=== PATIENT | female | born 1940 ===

== ENCOUNTER 2019-04-25 08:25 | Inpatient (IN) | payer MEDICARE ==
[2019-04-25] MEDS ORDERED: NACL 0.9% 1000 ML IV ONE (09:06)
[2019-04-25] MEDS ORDERED: MORPHINE IV ONE (09:07)
[2019-04-25] MEDS ORDERED: ZOFRAN IV ONE (09:07)
--- NOTE | 2019-04-25 09:09 | Emergency Department Report ---
ED General Adult HPI - General Chief complaint: Nausea/Vomiting/Diarrhea Stated complaint: VOMITING/LOW BLOOD SUGAR/LETHARGIC Time Seen by Provider: 04/25/19 08:38 Source: patient, EMS (EMS notes not available at time of chart dictation), RN notes reviewed Mode of arrival: Stretcher Limitations: Other - History of Present Illness Initial comments: This is an elderly 79-year-old female who is not known to this provider previously. As per includes documentation, it appears that Dr. Dorothea Burks is her provider. The patient's may have a history of diabetes. She may also have a history of asthma, COPD or bronchitis, and/or GERD, gastritis. Patient is currently a resident at [facility]. Patient brought to the hospital by EMS for altered mental status, weakness and hypoglycemia. EMS indicates the patient was hypoglycemic, and required initiation of a dextrose 10 drip. In the ER, the patient is awake, but altered. She complains of abdominal pain. She cannot tell me when the pain started. She cannot describe exacerbating or relieving factors, or radiation. The patient follows commands. She states she is nauseous. She denies head pain, neck pain, chest pain, urinary symptoms, focal extremity weakness, numbness. No additional history is available at this time. -: unknown Radiation: abdomen Quality: other Consistency: other Improves with: other Worsens with: other Associated Symptoms: other - Related Data Home Medications Medication Instructions Recorded Confirmed Last Taken ALBUTEROL Inhaler (OR & NICU) 2 puff IH BID PRN 04/25/19 04/25/19 Unknown [Proair] Insulin NPH/Regular [Novolin 70/30] 25 units SUB-Q QAM&QHS 04/25/19 04/25/19 Unknown Nitroglycerin [Nitrostat] 0.4 mg SL Q5M PRN MDD 1.2 MG 04/25/19 04/25/19 Unknown Ondansetron [Zofran TAB] 4 mg PO Q6HR PRN 04/25/19 04/25/19 Unknown Pantoprazole [Protonix] 40 mg PO QDAY 04/25/19 04/25/19 Unknown Triamcinolone 0.1% [Kenalog 0.1% 1 applic TP DAILY@0900 04/25/19 04/25/19 Unknown CREAM] traMADol [Ultram] 50 mg PO TID PRN 04/25/19 04/25/19 Unknown Allergies Allergy/AdvReac Type Severity Reaction Status Date / Time No Known Allergies Allergy Verified 04/25/19 09:21 ED Review of Systems ROS: Stated complaint: VOMITING/LOW BLOOD SUGAR/LETHARGIC Other details as noted in HPI Comment: Unobtainable due to pts medical conditions Constitutional: malaise, weakness Gastrointestinal: abdominal pain, nausea Neurological: weakness ED Past Medical Hx - Past Medical History Previous Medical History?: Yes Hx Diabetes: Yes (Type II) Hx Renal Disease: Yes (Stage 3) Hx Psychiatric Treatment: Yes (MDD, Dementia) Additional medical history: Angina, - Social History Smoking Status: Former Smoker - Medications Home Medications: Home Medications Medication Instructions Recorded Confirmed Last Taken Type ALBUTEROL Inhaler (OR & NICU) 2 puff IH BID PRN 04/25/19 04/25/19 Unknown History [Proair] Insulin NPH/Regular [Novolin 70/30] 25 units SUB-Q QAM&QHS 04/25/19 04/25/19 Unknown History Nitroglycerin [Nitrostat] 0.4 mg SL Q5M PRN MDD 1.2 MG 04/25/19 04/25/19 Unknown History Ondansetron [Zofran TAB] 4 mg PO Q6HR PRN 04/25/19 04/25/19 Unknown History Pantoprazole [Protonix] 40 mg PO QDAY 04/25/19 04/25/19 Unknown History Triamcinolone 0.1% [Kenalog 0.1% 1 applic TP DAILY@0900 04/25/19 04/25/19 Unknown History CREAM] traMADol [Ultram] 50 mg PO TID PRN 04/25/19 04/25/19 Unknown History ED Physical Exam - General Limitations: Altered Mental Status, Other General appearance: alert, in no apparent distress - Head Head exam: Present: atraumatic, normocephalic - Eye Eye exam: Present: EOMI - ENT ENT exam: Present: mucous membranes dry, normal external ear exam - Neck Neck exam: Present: normal inspection, full ROM. Absent: tenderness, meningismus - Respiratory Respiratory exam: Present: normal lung sounds bilaterally. Absent: respiratory distress - Cardiovascular Cardiovascular Exam: Present: normal rhythm, tachycardia, normal heart sounds. Absent: systolic murmur, diastolic murmur, rubs, gallop - GI/Abdominal GI/Abdominal exam: Present: soft, tenderness. Absent: distended, guarding, rebound, rigid, pulsatile mass - Rectal Rectal exam: Present: normal inspection, other (chaperoned by nurse Lena Madrid). Absent: heme (-) stool - External exam: Present: normal external exam, other (chaperoned by frankie black). Absent: erythema, swelling, lesions, lacerations Speculum exam: Absent: vaginal bleeding, foreign body, tissue, laceration Bi-manual exam: Present: other (uterine prolapse noted) - Extremities Exam Extremities exam: Present: normal inspection, full ROM, other (2+ pulses noted in the bilateral upper, lower extremities. There is no long bony tenderness. The pelvis is stable. Muscular compartments are soft. There is no redness, pus, streaking or crepitus noted.). Absent: joint swelling, calf tenderness - Back Exam Back exam: Present: normal inspection, full ROM. Absent: tenderness, CVA tenderness (R), CVA tenderness (L), paraspinal tenderness, vertebral tenderness - Neurological Exam Neurological exam: Present: altered, other (Extraocular movements are intact bilaterally. There is no facial droop. The tongue is midline. Patient speaking in full complete sentences. There is no dysphonia. Hearing is grossly intact bilaterally. Shoulder shrug is intact bilaterally. 5/5 strength bilateral upper, lower extremities. Sensation is intact to light touch bilateral upper, lower extremities.) - Psychiatric Psychiatric exam: Present: anxious - Skin Skin exam: Present: warm, dry, intact, normal color. Absent: rash ED Course Vital Signs 04/25/19 04/25/19 04/25/19 08:54 09:00 09:01 Temperature 99.2 F Pulse Rate 190 H 98 H Respiratory 14 Rate Blood Pressure O2 Sat by Pulse Oximetry 04/25/19 04/25/19 04/25/19 09:15 09:20 09:31 Temperature 99.2 F Pulse Rate 107 H 104 H Respiratory 15 13 Rate Blood Pressure 184/76 181/78 O2 Sat by Pulse 100 100 Oximetry 04/25/19 10:01 Temperature Pulse Rate 106 H Respiratory 11 L Rate Blood Pressure 181/78 O2 Sat by Pulse 98 Oximetry - Reevaluation(s) Reevaluation #1: 04/25/19 11:03 Differential diagnosis, including but not limited to: Pneumonia, urinary tract infection, intra-abdominal infection, bacteremia, viremia Assessment and plan: 79-year-old female with tachycardia, lactic acidosis, acute renal insufficiency, diffuse abdominal tenderness and hypoglycemia. Patient meets criteria for systemic inflammatory response syndrome. Patient medicated with IV fluids, pain medication, nausea medication and appropriate broad- spectrum antibiotic therapy. Do not suspect skin or soft tissue infection at this time based off of the physical examination. CT scan of the brain, abdomen and pelvis pending. Patient placed on dextrose 10 drip, and every 1 hour Accu- Cheks are ordered. We will reassess once her imaging studies have resulted. Likely candidate for admission for IV fluids, antibiotics, pain control and supportive therapy. May require additional consultations as dictated by initial imaging studies. Reevaluation #2: 04/25/19 11:52 CT scan of brain negative for acute disease. CT scan of the abdomen pelvis reviewed and appreciated. Gynecologic examination suggestive of uterine prolapse. Discussed with daughter and granddaughter at the bedside. As per daughter, patient admitted to [facility] a few weeks ago for dehydration and similar presentation. Discussed goals of care with family. They indicated they would like the patient to be DO NOT RESUSCITATE, DO NOT INTUBATE. They are amenable to IV fluids, pain medication, and comfort care. Hospital physician is paged to arrange admission Reevaluation #3: 04/25/19 12:23 Case is presented to Hospital physician, Dr. Christy. He will admit the patient to the medical service. Repeat lactic acid is reviewed and appreciated. ED Medical Decision Making - Lab Data Result diagrams: 04/25/19 09:18 04/25/19 09:18 Vital Signs 04/25/19 04/25/19 04/25/19 08:54 09:00 09:01 Temperature 99.2 F Pulse Rate 190 H 98 H Respiratory 14 Rate Blood Pressure O2 Sat by Pulse Oximetry 04/25/19 04/25/19 04/25/19 09:15 09:20 09:31 Temperature 99.2 F Pulse Rate 107 H 104 H Respiratory 15 13 Rate Blood Pressure 184/76 181/78 O2 Sat by Pulse 100 100 Oximetry 04/25/19 10:01 Temperature Pulse Rate 106 H Respiratory 11 L Rate Blood Pressure 181/78 O2 Sat by Pulse 98 Oximetry Lab Results 04/25/19 04/25/19 04/25/19 Range/Units 09:18 09:18 09:18 WBC 10.8 (4.5-11.0) K/mm3 RBC 3.48 L (3.65-5.03) M/mm3 Hgb 12.0 (10.1-14.3) gm/dl Hct 35.0 (30.3-42.9) % MCV 101 H (79-97) fl MCH 35 H (28-32) pg MCHC 34 (30-34) % RDW 14.4 (13.2-15.2) % Plt Count 276 (140-440) K/mm3 Lymph % (Auto) 4.9 L (13.4-35.0) % [place] % (Auto) 5.6 (0.0-7.3) % Eos % (Auto) 0.0 (0.0-4.3) % Baso % (Auto) 0.2 (0.0-1.8) % Lymph # 0.5 L (1.2-5.4) K/mm3 [place] # 0.6 (0.0-0.8) K/mm3 Eos # 0.0 (0.0-0.4) K/mm3 Baso # 0.0 (0.0-0.1) K/mm3 Seg Neutrophils % 89.3 H (40.0-70.0) % Seg Neutrophils # 9.6 H (1.8-7.7) K/mm3 PT 12.4 (12.2-14.9) Sec. INR 0.95 (0.87-1.13) APTT 28.3 (24.2-36.6) Sec. Sodium 141 (137-145) mmol/L Potassium 4.2 (3.6-5.0) mmol/L Chloride 93.3 L (98-107) mmol/L Carbon Dioxide 23 (22-30) mmol/L Anion Gap 29 mmol/L BUN 51 H (7-17) mg/dL Creatinine 2.1 H (0.7-1.2) mg/dL Estimated GFR 23 ml/min BUN/Creatinine Ratio 24 % Glucose 187 H (65-100) mg/dL POC Glucose (70-105) Lactic Acid (0.7-2.0) mmol/L Calcium 9.7 (8.4-10.2) mg/dL Total Bilirubin 0.50 (0.1-1.2) mg/dL AST 22 (5-40) units/L ALT 19 (7-56) units/L Alkaline Phosphatase 52 (35-129) units/L Ammonia (25-60) umol/L Troponin T 0.056 H (0.00-0.029) ng/mL Total Protein 7.0 (6.3-8.2) g/dL Albumin 3.7 L (3.9-5) g/dL Albumin/Globulin Ratio 1.1 % Triglycerides 66 (2-149) mg/dL Cholesterol 113 (50-199) mg/dL LDL Cholesterol Direct 41 L (50-130) mg/dL HDL Cholesterol 68 H (40-59) mg/dL Cholesterol/HDL Ratio 1.66 % TSH (0.270-4.200) mlU/mL Urine Color (Yellow) Urine Turbidity (Clear) Urine pH (5.0-7.0) Ur Specific [place] (1.003-1.030) Urine Protein (Negative) mg/dL Urine Glucose (UA) (Negative) mg/dL Urine Ketones (Negative) mg/dL Urine Blood (Negative) Urine Nitrite (Negative) Urine Bilirubin (Negative) Urine Urobilinogen (<2.0) mg/dL Ur Leukocyte Esterase (Negative) Urine WBC (Auto) (0.0-6.0) /HPF Urine RBC (Auto) (0.0-6.0) /HPF Salicylates (2.8-20.0) mg/dL Acetaminophen (10.0-30.0) ug/mL Plasma/Serum Alcohol (0-0.07) % 04/25/19 04/25/19 04/25/19 Range/Units 09:18 09:18 09:18 WBC (4.5-11.0) K/mm3 RBC (3.65-5.03) M/mm3 Hgb (10.1-14.3) gm/dl Hct (30.3-42.9) % MCV (79-97) fl MCH (28-32) pg MCHC (30-34) % RDW (13.2-15.2) % Plt Count (140-440) K/mm3 Lymph % (Auto) (13.4-35.0) % [place] % (Auto) (0.0-7.3) % Eos % (Auto) (0.0-4.3) % Baso % (Auto) (0.0-1.8) % Lymph # (1.2-5.4) K/mm3 [place] # (0.0-0.8) K/mm3 Eos # (0.0-0.4) K/mm3 Baso # (0.0-0.1) K/mm3 Seg Neutrophils % (40.0-70.0) % Seg Neutrophils # (1.8-7.7) K/mm3 PT (12.2-14.9) Sec. INR (0.87-1.13) APTT (24.2-36.6) Sec. Sodium (137-145) mmol/L Potassium (3.6-5.0) mmol/L Chloride (98-107) mmol/L Carbon Dioxide (22-30) mmol/L Anion Gap mmol/L BUN (7-17) mg/dL Creatinine (0.7-1.2) mg/dL Estimated GFR ml/min BUN/Creatinine Ratio % Glucose (65-100) mg/dL POC Glucose (70-105) Lactic Acid 7.90 H* (0.7-2.0) mmol/L Calcium (8.4-10.2) mg/dL Total Bilirubin (0.1-1.2) mg/dL AST (5-40) units/L ALT (7-56) units/L Alkaline Phosphatase (35-129) units/L Ammonia 25.0 (25-60) umol/L Troponin T (0.00-0.029) ng/mL Total Protein (6.3-8.2) g/dL Albumin (3.9-5) g/dL Albumin/Globulin Ratio % Triglycerides (2-149) mg/dL Cholesterol (50-199) mg/dL LDL Cholesterol Direct (50-130) mg/dL HDL Cholesterol (40-59) mg/dL Cholesterol/HDL Ratio % TSH 1.470 (0.270-4.200) mlU/mL Urine Color (Yellow) Urine Turbidity (Clear) Urine pH (5.0-7.0) Ur Specific [place] (1.003-1.030) Urine Protein (Negative) mg/dL Urine Glucose (UA) (Negative) mg/dL Urine Ketones (Negative) mg/dL Urine Blood (Negative) Urine Nitrite (Negative) Urine Bilirubin (Negative) Urine Urobilinogen (<2.0) mg/dL Ur Leukocyte Esterase (Negative) Urine WBC (Auto) (0.0-6.0) /HPF Urine RBC (Auto) (0.0-6.0) /HPF Salicylates (2.8-20.0) mg/dL Acetaminophen (10.0-30.0) ug/mL Plasma/Serum Alcohol (0-0.07) % 04/25/19 04/25/19 04/25/19 Range/Units 09:18 09:18 09:18 WBC (4.5-11.0) K/mm3 RBC (3.65-5.03) M/mm3 Hgb (10.1-14.3) gm/dl Hct (30.3-42.9) % MCV (79-97) fl MCH (28-32) pg MCHC (30-34) % RDW (13.2-15.2) % Plt Count (140-440) K/mm3 Lymph % (Auto) (13.4-35.0) % [place] % (Auto) (0.0-7.3) % Eos % (Auto) (0.0-4.3) % Baso % (Auto) (0.0-1.8) % Lymph # (1.2-5.4) K/mm3 [place] # (0.0-0.8) K/mm3 Eos # (0.0-0.4) K/mm3 Baso # (0.0-0.1) K/mm3 Seg Neutrophils % (40.0-70.0) % Seg Neutrophils # (1.8-7.7) K/mm3 PT (12.2-14.9) Sec. INR (0.87-1.13) APTT (24.2-36.6) Sec. Sodium (137-145) mmol/L Potassium (3.6-5.0) mmol/L Chloride (98-107) mmol/L Carbon Dioxide (22-30) mmol/L Anion Gap mmol/L BUN (7-17) mg/dL Creatinine (0.7-1.2) mg/dL Estimated GFR ml/min BUN/Creatinine Ratio % Glucose (65-100) mg/dL POC Glucose (70-105) Lactic Acid (0.7-2.0) mmol/L Calcium (8.4-10.2) mg/dL Total Bilirubin (0.1-1.2) mg/dL AST (5-40) units/L ALT (7-56) units/L Alkaline Phosphatase (35-129) units/L Ammonia (25-60) umol/L Troponin T (0.00-0.029) ng/mL Total Protein (6.3-8.2) g/dL Albumin (3.9-5) g/dL Albumin/Globulin Ratio % Triglycerides (2-149) mg/dL Cholesterol (50-199) mg/dL LDL Cholesterol Direct (50-130) mg/dL HDL Cholesterol (40-59) mg/dL Cholesterol/HDL Ratio % TSH (0.270-4.200) mlU/mL Urine Color (Yellow) Urine Turbidity (Clear) Urine pH (5.0-7.0) Ur Specific [place] (1.003-1.030) Urine Protein (Negative) mg/dL Urine Glucose (UA) (Negative) mg/dL Urine Ketones (Negative) mg/dL Urine Blood (Negative) Urine Nitrite (Negative) Urine Bilirubin (Negative) Urine Urobilinogen (<2.0) mg/dL Ur Leukocyte Esterase (Negative) Urine WBC (Auto) (0.0-6.0) /HPF Urine RBC (Auto) (0.0-6.0) /HPF Salicylates < 0.3 L (2.8-20.0) mg/dL Acetaminophen < 5.0 L (10.0-30.0) ug/mL Plasma/Serum Alcohol < 0.01 (0-0.07) % 04/25/19 04/25/19 Range/Units 09:57 Unknown WBC (4.5-11.0) K/mm3 RBC (3.65-5.03) M/mm3 Hgb (10.1-14.3) gm/dl Hct (30.3-42.9) % MCV (79-97) fl MCH (28-32) pg MCHC (30-34) % RDW (13.2-15.2) % Plt Count (140-440) K/mm3 Lymph % (Auto) (13.4-35.0) % [place] % (Auto) (0.0-7.3) % Eos % (Auto) (0.0-4.3) % Baso % (Auto) (0.0-1.8) % Lymph # (1.2-5.4) K/mm3 [place] # (0.0-0.8) K/mm3 Eos # (0.0-0.4) K/mm3 Baso # (0.0-0.1) K/mm3 Seg Neutrophils % (40.0-70.0) % Seg Neutrophils # (1.8-7.7) K/mm3 PT (12.2-14.9) Sec. INR (0.87-1.13) APTT (24.2-36.6) Sec. Sodium (137-145) mmol/L Potassium (3.6-5.0) mmol/L Chloride (98-107) mmol/L Carbon Dioxide (22-30) mmol/L Anion Gap mmol/L BUN (7-17) mg/dL Creatinine (0.7-1.2) mg/dL Estimated GFR ml/min BUN/Creatinine Ratio % Glucose (65-100) mg/dL POC Glucose 178 H (70-105) Lactic Acid (0.7-2.0) mmol/L Calcium (8.4-10.2) mg/dL Total Bilirubin (0.1-1.2) mg/dL AST (5-40) units/L ALT (7-56) units/L Alkaline Phosphatase (35-129) units/L Ammonia (25-60) umol/L Troponin T (0.00-0.029) ng/mL Total Protein (6.3-8.2) g/dL Albumin (3.9-5) g/dL Albumin/Globulin Ratio % Triglycerides (2-149) mg/dL Cholesterol (50-199) mg/dL LDL Cholesterol Direct (50-130) mg/dL HDL Cholesterol (40-59) mg/dL Cholesterol/HDL Ratio % TSH (0.270-4.200) mlU/mL Urine Color Yellow (Yellow) Urine Turbidity Clear (Clear) Urine pH 5.0 (5.0-7.0) Ur Specific [place] 1.011 (1.003-1.030) Urine Protein <15 mg/dl (Negative) mg/dL Urine Glucose (UA) Neg (Negative) mg/dL Urine Ketones Neg (Negative) mg/dL Urine Blood Neg (Negative) Urine Nitrite Neg (Negative) Urine Bilirubin Neg (Negative) Urine Urobilinogen < 2.0 (<2.0) mg/dL Ur Leukocyte Esterase Neg (Negative) Urine WBC (Auto) 1.0 (0.0-6.0) /HPF Urine RBC (Auto) 1.0 (0.0-6.0) /HPF Salicylates (2.8-20.0) mg/dL Acetaminophen (10.0-30.0) ug/mL Plasma/Serum Alcohol (0-0.07) % - EKG Data 04/25/19 11:02 There is no prior EKG for comparison. This EKG shows a sinus rhythm, 96 bpm, motion artifact, or altered progression, low voltage, QTC prolonged, the EKG is abnormal, there is no prior for comparison, the EKG is not consistent with ST elevation myocardial infarction. - Radiology Data Radiology results: report reviewed, image reviewed Print Report Referring Physician: LAUREN WHITTAKER Patient Name: LAUREN JOHNSON Date of : 1940 Sex: Female Report Date: 2019-04-25 Report Status: Finalized Findings [facility] [address] [place] [address] XRay Report Signed Patient: LAUREN JOHNSON MR#: [id number] : 1940 Acct:[id number] Age/Sex: 79 / F ADM Date: 04/25/19 Loc: ED Attending Dr: Ordering Physician: LAUREN WHITTAKER MD Date of Service: 04/25/19 Procedure(s): XR chest 1V ap Accession Number(s): [id number] cc: LAUREN WHITTAKER MD Fluoro Time In Minutes: CHEST 1 VIEW INDICATION / CLINICAL INFORMATION: ams weak tachycardia. COMPARISON: None available. FINDINGS: SUPPORT DEVICES: None. HEART / MEDIASTINUM: Normal size with evidence of median sternotomy. LUNGS / PLEURA: No significant pulmonary or pleural abnormality. No pneumothora x. ADDITIONAL FINDINGS: No significant additional findings. IMPRESSION: 1 No significant abnormality. Signer Name: Link Angel MD Signed: 04/25/2019 9:59 AM Workstation Name: [id number] Transcribed By: VIJAY Dictated By: Link Angel MD Electronically Authenticated By: Link Angel MD Signed Date/Time: 04/25/19 0959 [facility] [address] [place] [address] Cat Scan Report Signed Patient: LAUREN JOHNSON MR#: [id number] : 1940 Acct:[id number] Age/Sex: 79 / F ADM Date: 04/25/19 Loc: ED Attending Dr: Ordering Physician: LAUREN WHITTAKER MD Date of Service: 04/25/19 Procedure(s): CT abdomen pelvis wo con Accession Number(s): [id number] cc: LAUREN WHITTAKER MD CT scan of the abdomen and pelvis without contrast INDICATION: Altered metal status, abdominal pain, CHETAN. TECHNIQUE: All CT scans at this location are performed using the following dose modulation technique: Automated exposure control. Helical slices were obtained through the abdomen and pelvis. No contrast is administered. COMPARISON: None available FINDINGS: Abdomen: No acute abnormality is seen in the lung bases. Liver, spleen, kidneys, and small bowel are unremarkable. Stomach is distended with fluid. There is atherosclerotic calcification in the aorta, mesenteric vessels and iliac arteries. There is a water density mass in the region of the head of the pancreas which measures approximately 4 cm in diameter. There is no obstruction or free air. There is moderate amount stool throughout colon. Pelvis: Urinary bladder is distended. The vagina appears irregular somewhat prominent. This could represent prolapse. This could potentially represent a vaginal mass. On review of bone windows, no acute osseous abnormality is seen. IMPRESSION: 1. There is a 4 cm cystic mass in the head of the pancreas. His could represent a pseudocyst. This could represent a large branch type intraductal mucinous tumor. This could represent a cyst adenoma or cyst adenocarcinoma. There is atherosclerotic disease. The urinary bladder is distended. There is a small bubble of gas in the urinary bladder possibly iatrogenic. The vagina appears prominent and irregular. Is not specific. This could represent a component of vaginal prolapse. The possibility of mass lesion in the vagina is considered. Correlation with physical exam is recommended. Signer Name: Alber Jimenez MD Signed: 04/25/2019 11:22 AM Workstation Name: [email or web address] Critical Care Time: Yes Critical care time in (mins) excluding proc time.: 35 Critical care attestation.: If time is entered above; I have spent that time in minutes in the direct care of this critically ill patient, excluding procedure time. ED Disposition Clinical Impression: CHETAN (acute kidney injury), SIRS (systemic inflammatory response syndrome), Hypoglycemia, Acute abdominal pain Disposition: OP ADMIT IP TO THIS HOSP Is pt being admited?: Yes Does the pt Need Aspirin: No Condition: Good Referrals: ZAIN VELIZ MD [Primary Care Provider] - 3-5 Days
[2019-04-25 09:31] LABS: Bilirubin,Urine NEG (Negative); Blood,Urine NEG (Negative); Color,Urine Yellow (Yellow); Protein,Urine <15 mg/dL mg/dL (Negative); Urobilinogen,Urine < 2.0 mg/dL (<2.0)
[2019-04-25 09:50] LABS: Basophils % (Auto) 0.2 % (0.0-1.8); Lymphocytes # (Auto) 0.5 K/mm3 (1.2-5.4); Lymphocytes % (Auto) 4.9 % (13.4-35.0); Mean Corpuscular HGB Conc 34 % (30-34); Mean Corpuscular Volume 101 fl (79-97); Monocytes # (Auto) 0.6 K/mm3 (0.0-0.8); Monocytes % (Auto) 5.6 % (0.0-7.3); Platelet Count 276 K/mm3 (140-440); Red Blood Count 3.48 M/mm3 (3.65-5.03); Red Cell Distribution Width 14.4 % (13.2-15.2)
[2019-04-25] MEDS ORDERED: D10W 1,000 ML IV SCH (10:00)
[2019-04-25 10:02] LABS: INR 0.95 (0.87-1.13)
[2019-04-25 10:03] LABS: Partial Thromboplastin Time 28.3 Sec. (24.2-36.6)
--- NOTE | 2019-04-25 10:04 | XRay Report ---
CHEST 1 VIEW INDICATION / CLINICAL INFORMATION: ams weak tachycardia. COMPARISON: None available. FINDINGS: SUPPORT DEVICES: None. HEART / MEDIASTINUM: Normal size with evidence of median sternotomy. LUNGS / PLEURA: No significant pulmonary or pleural abnormality. No pneumothorax. ADDITIONAL FINDINGS: No significant additional findings. IMPRESSION: 1 No significant abnormality. Signer Name: Link Angel MD Signed: 04/25/2019 9:59 AM Workstation Name: [id number]
[2019-04-25 10:11] LABS: Albumin 3.7 g/dL (3.9-5); Calcium 9.7 mg/dL (8.4-10.2)
[2019-04-25 10:34] LABS: Chol/HDL Ratio 1.66 %
[2019-04-25] MEDS ORDERED: ZOSYN/NS 3.375GM/50ML 3.375 GM/50 ML BAG IV ONE (11:00)
--- NOTE | 2019-04-25 11:27 | Cat Scan Report ---
CT scan of the abdomen and pelvis without contrast INDICATION: Altered metal status, abdominal pain, CHETAN. TECHNIQUE: All CT scans at this location are performed using the following dose modulation technique: Automated exposure control. Helical slices were obtained through the abdomen and pelvis. No contrast is adminis tered. COMPARISON: None available FINDINGS: Abdomen: No acute abnormality is seen in the lung bases. Liver, spleen, kidneys, and small bowel are unremarkable. Stomach is distended with fluid. There is atherosclerotic calcification in the aorta, m esenteric vessels and iliac arteries. There is a water density mass in the region of the head of the pancreas which measures approximately 4 cm in diameter. There is no obstruction or free air. There is moderate amount stool throughout colon. Pelvis: Urinary bladder is distended. The vagina appears irregular somewhat prominent. This could rep resent prolapse. This could potentially represent a vaginal mass. On review of bone windows, no acute osseous abnormality is seen. IMPRESSION: 1. There is a 4 cm cystic mass in the head of the pancreas. His could represent a pseudocyst. This co uld represent a large branch type intraductal mucinous tumor. This could represent a cyst adenoma or cyst adenocarcinoma. There is atherosclerotic disease. The urinary bladder is distended. There is a small bubble of gas in the urinary bladder possibly iatr ogenic. The vagina appears prominent and irregular. Is not specific. This could represent a component of vagi nal prolapse. The possibility of mass lesion in the vagina is considered. Correlation with physical e xam is recommended. Signer Name: Alber Jimenez MD Signed: 04/25/2019 11:22 AM Workstation Name: [id number]
--- NOTE | 2019-04-25 11:46 | Cat Scan Report ---
CT head/brain wo con INDICATION / CLINICAL INFORMATION: 79 years Female; ams. TECHNIQUE: Routine CT head without contrast. All CT scans at this location are performed using CT dos e reduction for ALARA by means of automated exposure control. Patient was tilted in the scanner-unabl e to cooperate with the exam. COMPARISON: None. 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 No acute hemo rrhage, mass effect, midline shift, hydrocephalus, or acute, large territorial infarct. Mild to moderate cerebral and cerebellar atrophy. There are moderate areas of decreased attenuation in the white matter of the cerebral hemispheres, as well as the gangliocapsular regions. These are nonspecific findings and may be related to microangio sascha (hypertension, diabetes, atherosclerosis), given the patient's age. It might be difficult to ev aluate for small areas of ischemia without diffusion imaging by MRI. CRANIOCERVICAL JUNCTION: No significant abnormality. ORBITS: No significant abnormality of visualized orbits. SINUSES / MASTOIDS: No significant abnormality of the visualized paranasal sinuses or mastoid air kathrin ls. ADDITIONAL FINDINGS: Atherosclerotic disease is seen in the anterior and posterior circulation. IMPRESSION: 1. No focal mass, hemorrhage, hydrocephalus, or acute, large territorial infarct. Follow-up with diff usion imaging by MRI as clinically warranted. Signer Name: Gavino Da Silva MD, III Signed: 04/25/2019 11:42 AM Workstation Name: [id number]
--- NOTE | 2019-04-25 12:42 | History and Physical Report ---
History of Present Illness Chief complaint: I feel sick History of present illness: 79 YO Female Care Home Facility Resident at [facility] with COPD, Asthma, GERD, DM, Dementia, Debility, Contracture presents to ED for evaluation. Pt is confused and unable to provide detailed history. Pt history taken from ED staff, and SNF staff. As per staff, the patient was found by half-way staff to have decreased oral intake over the past 3 days, and complained of abdominal discomfort. Pt was found by SNF staff to be lethargic on exam with a blood glucose in the 80's. EMS notified and upon arrival the patent was found to have a glucose in the 60's and in distress. Pt initiated on a Dextrose drip and transported to [facility]. Pt seen and evaluated in ED and found to have Encephalopathy, CHETAN, Acidosis, Hypoglycemia. Pt is bedbound, and dependent 3/6 for activities of daily living. Pt admitted to [facility] unit and treated with IVF resuscitation therapy, Nephrology consulted in ED. No prior admission for review. All medication listed at time of admission has been reconciled. Past History Past Medical History: diabetes, GERD, other (Dementia, Debility, Contracture) Past Surgical History: No surgical history, Other (reviewed) Social history: single, other (Long-Term resident) Family history: hypertension Medications and Allergies Allergies Allergy/AdvReac Type Severity Reaction Status Date / Time No Known Allergies Allergy Verified 04/25/19 09:21 Home Medications Medication Instructions Recorded Confirmed Last Taken Type ALBUTEROL Inhaler (OR & NICU) 2 puff IH BID PRN 04/25/19 04/25/19 Unknown History [Proair] Insulin NPH/Regular [Novolin 70/30] 25 units SUB-Q QAM&QHS 04/25/19 04/25/19 Unknown History Nitroglycerin [Nitrostat] 0.4 mg SL Q5M PRN MDD 1.2 MG 04/25/19 04/25/19 Unknown History Ondansetron [Zofran TAB] 4 mg PO Q6HR PRN 04/25/19 04/25/19 Unknown History Pantoprazole [Protonix] 40 mg PO QDAY 04/25/19 04/25/19 Unknown History Triamcinolone 0.1% [Kenalog 0.1% 1 applic TP DAILY@0900 04/25/19 04/25/19 Unknown History CREAM] traMADol [Ultram] 50 mg PO TID PRN 04/25/19 04/25/19 Unknown History Active Meds: Active Medications Dextrose (D10w) 1,000 mls @ 75 mls/hr IV DIRECT RUFINA Review of Systems ROS unobtainable: due to mental status Exam - Constitutional Vitals: Temp Pulse Resp BP Pulse Ox 99.2 F 103 H 13 179/77 99 04/25/19 09:20 04/25/19 12:01 04/25/19 12:01 04/25/19 12:01 04/25/19 12:01 General appearance: Present: mild distress - EENT Eyes: Present: PERRL ENT: hearing intact, clear oral mucosa - Neck Neck: Present: supple, normal ROM - Respiratory Respiratory effort: normal Respiratory: bilateral: CTA - Cardiovascular Heart Sounds: Present: S1 & S2. Absent: rub, click - Extremities Extremities: pulses symmetrical, No edema Peripheral Pulses: within normal limits - Abdominal General gastrointestinal: Present: soft, non-tender, non-distended, normal bowel sounds Female genitourinary: Present: normal - Integumentary Integumentary: Present: clear, dry, clammy - Musculoskeletal Musculoskeletal: generalized weakness - Psychiatric Psychiatric: no appropriate mood/affect, no intact judgment & insight, no memory intact - Neurologic Neurologic: CNII-XII intact, no focal deficits, moves all extremities, no gait normal Results - Labs CBC & Chem 7: 04/25/19 09:18 04/25/19 09:18 Labs: Abnormal lab results 04/25/19 04/25/19 04/25/19 Range/Units 09:18 09:18 09:18 RBC 3.48 L (3.65-5.03) M/mm3 MCV 101 H (79-97) fl MCH 35 H (28-32) pg Lymph % (Auto) 4.9 L (13.4-35.0) % Lymph # 0.5 L (1.2-5.4) K/mm3 Seg Neutrophils % 89.3 H (40.0-70.0) % Seg Neutrophils # 9.6 H (1.8-7.7) K/mm3 Chloride 93.3 L (98-107) mmol/L BUN 51 H (7-17) mg/dL Creatinine 2.1 H (0.7-1.2) mg/dL Glucose 187 H (65-100) mg/dL POC Glucose (70-105) Lactic Acid 7.90 H* (0.7-2.0) mmol/L Troponin T 0.056 H (0.00-0.029) ng/mL Albumin 3.7 L (3.9-5) g/dL LDL Cholesterol Direct 41 L (50-130) mg/dL HDL Cholesterol 68 H (40-59) mg/dL Salicylates (2.8-20.0) mg/dL Acetaminophen (10.0-30.0) ug/mL 04/25/19 04/25/19 04/25/19 Range/Units 09:18 09:18 09:57 RBC (3.65-5.03) M/mm3 MCV (79-97) fl MCH (28-32) pg Lymph % (Auto) (13.4-35.0) % Lymph # (1.2-5.4) K/mm3 Seg Neutrophils % (40.0-70.0) % Seg Neutrophils # (1.8-7.7) K/mm3 Chloride (98-107) mmol/L BUN (7-17) mg/dL Creatinine (0.7-1.2) mg/dL Glucose (65-100) mg/dL POC Glucose 178 H (70-105) Lactic Acid (0.7-2.0) mmol/L Troponin T (0.00-0.029) ng/mL Albumin (3.9-5) g/dL LDL Cholesterol Direct (50-130) mg/dL HDL Cholesterol (40-59) mg/dL Salicylates < 0.3 L (2.8-20.0) mg/dL Acetaminophen < 5.0 L (10.0-30.0) ug/mL 04/25/19 Range/Units 11:13 RBC (3.65-5.03) M/mm3 MCV (79-97) fl MCH (28-32) pg Lymph % (Auto) (13.4-35.0) % Lymph # (1.2-5.4) K/mm3 Seg Neutrophils % (40.0-70.0) % Seg Neutrophils # (1.8-7.7) K/mm3 Chloride (98-107) mmol/L BUN (7-17) mg/dL Creatinine (0.7-1.2) mg/dL Glucose (65-100) mg/dL POC Glucose (70-105) Lactic Acid 6.60 H* (0.7-2.0) mmol/L Troponin T (0.00-0.029) ng/mL Albumin (3.9-5) g/dL LDL Cholesterol Direct (50-130) mg/dL HDL Cholesterol (40-59) mg/dL Salicylates (2.8-20.0) mg/dL Acetaminophen (10.0-30.0) ug/mL Assessment and Plan - Patient Problems (1) CHETAN (acute kidney injury) Current Visit: Yes Status: Acute Plan to address problem: IVF resuscitation therapy, Nephrology consulted in ED, urine electrolytes, renal ultrasound, avoid nephrotoxic agents, monitor uop q shift, (2) Acidosis Current Visit: Yes Status: Acute Plan to address problem: IVF resuscitation therapy, repeat bmp in am. (3) Hypoglycemia Current Visit: Yes Status: Acute Plan to address problem: supportive care, IVF resuscitation therapy, (4) Cardiomyopathy Current Visit: Yes Status: Suspected Qualifiers: Cardiomyopathy type: unspecified Qualified Code(s): I42.9 - Cardiomyopathy, unspecified Plan to address problem: thyroid panel, Echo, remote telemetry, supportive care. No abnormal findings on EKG. (5) Debility Current Visit: Yes Status: Acute Plan to address problem: PT consulted, supportive care. (6) GERD (gastroesophageal reflux disease) Current Visit: Yes Status: Acute Qualifiers: Esophagitis presence: without esophagitis Qualified Code(s): K21.9 - Gastro-esophageal reflux disease without esophagitis Plan to address problem: PPI therapy, supportive care, (7) Diabetes Current Visit: Yes Status: Acute Plan to address problem: ADA diet, insulin, accu check, hypoglycemia protocol. (8) DVT prophylaxis Current Visit: Yes Status: Acute Plan to address problem: SCD to BLE while in bed, prophylactic heparin
[2019-04-25] MEDS ORDERED: SODIUM CHLORIDE FLUSH SYRINGE 10 ML IV PRN (12:43)
[2019-04-25] MEDS ORDERED: NITROSTAT SL PRN (12:45)
[2019-04-25] MEDS ORDERED: NON-FORMULARY (Ondansetron [Zofran Tab] 4 MG) PO PRN (12:45)
[2019-04-25] MEDS ORDERED: APRESOLINE IV PRN (12:46)
[2019-04-25] MEDS ORDERED: ZOFRAN ODT PO PRN (12:53)
[2019-04-25 13:41] LABS: Free T4 (Free Thyroxine) 1.27 ng/dL (0.76-1.46)
[2019-04-25] MEDS ORDERED: ZOFRAN ONE (15:17)
[2019-04-25] MEDS ORDERED: APRESOLINE ONE (15:18)
[2019-04-25] MEDS: ZOFRAN IV PRN (15:25)
[2019-04-25] MEDS: HEPARIN SUB-Q SCH (22:00)
[2019-04-25] MEDS: SODIUM CHLORIDE FLUSH SYRINGE 10 ML IV SCH (22:00)
[2019-04-25 23:10] LABS: Creatinine,Urine 52.1 mg/dL (0.1-20.0)
[2019-04-26 06:26] LABS: Basophils % (Auto) 0.3 % (0.0-1.8); Hemoglobin 11.4 gm/dl (10.1-14.3); Lymphocytes % (Auto) 11.6 % (13.4-35.0); Mean Corpuscular HGB Conc 35 % (30-34); Mean Corpuscular Volume 101 fl (79-97); Monocytes # (Auto) 0.9 K/mm3 (0.0-0.8); Monocytes % (Auto) 10.8 % (0.0-7.3); Platelet Count 252 K/mm3 (140-440); Red Blood Count 3.27 M/mm3 (3.65-5.03); Red Cell Distribution Width 14.3 % (13.2-15.2)
[2019-04-26 06:51] LABS: Albumin 3.3 g/dL (3.9-5)
--- NOTE | 2019-04-26 07:37 | Consultation ---
History of Present Illness - Reason for Consult Consult date: 04/26/19 acute renal failure - History of Present Illness The patient is a 79 YO female with history significant for DM, COPD, Asthma, GERD and Dementia who presented to ED for evaluation decreased oral intake for about 3 days and abdominal discomfort. Pt was confused to provide any history and there was no family member at the bedside. In the ED her blood sugar was in the 60's. Pt was admitted with Encephalopathy, CHETAN, Lactic acidosis and Hypoglycemia. Nephrology was consulted for further evaluation of CHETAN. Past History Past Medical History: diabetes, GERD, other (Dementia, Debility, Contracture) Past Surgical History: No surgical history, Other (reviewed) Social history: single, other (Longterm resident) Family history: hypertension Medications and Allergies Allergies Allergy/AdvReac Type Severity Reaction Status Date / Time No Known Allergies Allergy Verified 04/25/19 09:21 Home Medications Medication Instructions Recorded Confirmed Last Taken Type ALBUTEROL Inhaler (OR & NICU) 2 puff IH BID PRN 04/25/19 04/25/19 Unknown History [Proair] Insulin NPH/Regular [Novolin 70/30] 25 units SUB-Q QAM&QHS 04/25/19 04/25/19 Unknown History Nitroglycerin [Nitrostat] 0.4 mg SL Q5M PRN MDD 1.2 MG 04/25/19 04/25/19 Unknown History Ondansetron [Zofran TAB] 4 mg PO Q6HR PRN 04/25/19 04/25/19 Unknown History Pantoprazole [Protonix] 40 mg PO QDAY 04/25/19 04/25/19 Unknown History Triamcinolone 0.1% [Kenalog 0.1% 1 applic TP DAILY@0900 04/25/19 04/25/19 Unknown History CREAM] traMADol [Ultram] 50 mg PO TID PRN 04/25/19 04/25/19 Unknown History Active Meds: Active Medications Acetaminophen (Tylenol) 650 mg PO Q4H PRN PRN Reason: Pain MILD(1-3)/Fever >100.5/CALLAHAN Heparin Sodium (Porcine) (Heparin) 5,000 unit SUB-Q Q12HR RUFINA Last Admin: 04/25/19 22:00 Dose: 5,000 unit Documented by: Hydralazine HCl (Apresoline) 10 mg IV Q6HR PRN PRN Reason: Hypertension Last Admin: 04/25/19 15:25 Dose: 10 mg Documented by: Dextrose (D10w) 1,000 mls @ 75 mls/hr IV DIRECT RUFINA Nitroglycerin (Nitrostat) 0.4 mg SL Q5M PRN PRN Reason: Chest Pain Ondansetron HCl (Zofran) 4 mg IV Q8H PRN PRN Reason: Nausea And Vomiting Last Admin: 04/25/19 15:25 Dose: 4 mg Documented by: Ondansetron HCl (Zofran Odt) 4 mg PO Q6H PRN PRN Reason: Nausea And Vomiting Pantoprazole Sodium (Protonix) 40 mg PO QDAY [facility] Sodium Chloride (Sodium Chloride Flush Syringe 10 Ml) 10 ml IV BID RUFINA Sodium Chloride (Sodium Chloride Flush Syringe 10 Ml) 10 ml IV PRN PRN PRN Reason: LINE FLUSH Tramadol HCl (Ultram) 50 mg PO TID PRN PRN Reason: Pain, Moderate (4-6) Triamcinolone Acetonide (Kenalog) 1 applic TP DAILY@0900 [facility] Review of Systems ROS unobtainable: due to mental status Exam - Vital Signs Vital signs: Vital Signs Pulse 190 H 04/25/19 08:54 - General Appearance General appearance: well-developed, appears stated age, other (no distress) EENT: ATNC, PERRL Respiratory: Clear to Ascultation Heart: regular, S1S2, no murmurs Gastrointestinal: Present: normoactive bowel sounds. Absent: tenderness, dis tended Integumentary: no rash, warm and dry Neurologic: confused, disoriented, other (able to move extremities) Musculoskeletal: Present: other (no edema) Results - Lab Results 04/26/19 05:56 04/26/19 05:56 Most recent lab results Calcium 9.0 mg/dL (8.4-10.2) 04/26/19 05:56 Phosphorus 4.90 mg/dL (2.5-4.5) H 04/26/19 05:56 Magnesium 1.80 mg/dL (1.7-2.3) 04/26/19 05:56 52.1 mg/dL (0.1-20.0) H 04/25/19 14:29 67 mmol/L 04/25/19 14:29 - Image Kidney/bladder ultrasound: report reviewed Assessment and Plan 1. Acute kidney injury: Vasomotor CHETAN in the setting of volume depletion. Renal US was negative for hydro. Urine studies ordered. Continue IV fluids. Monitor renal function. Avoid nephrotoxic agents. Meds dosage based on GFR. 2. FEN: Continue IV fluids. Monitor lytes. 3. Lactic acidosis. 4. Hypoglycemia. 5. Dementia.
[2019-04-26] MEDS: HEPARIN SUB-Q SCH ×2 (10:26→22:33)
[2019-04-26] MEDS: SODIUM CHLORIDE FLUSH SYRINGE 10 ML IV SCH ×2 (10:27→22:34)
[2019-04-26] MEDS: PROTONIX PO SCH (10:27)
[2019-04-26] MEDS: HumaLOG SUB-Q SCH ×3 (11:30→22:33)
--- NOTE | 2019-04-26 12:47 | Ultrasound Report ---
US RENAL BILAT INDICATION / CLINICAL INFORMATION: CHETAN. COMPARISON: None available. FINDINGS: The right kidney measures 8.3 cm and the left kidney measures 9.8 cm. No focal renal abnormality is s een. There is no evidence of hydronephrosis. The bladder is normal. IMPRESSION: Negative renal ultrasound Signer Name: Kraig Carmona MD FACR Signed: 04/26/2019 12:43 PM Workstation Name: [id number]
--- NOTE | 2019-04-26 16:40 | Progress Note ---
Assessment and Plan 79 YO Female Intermediate Facility Resident at [facility] with COPD, Asthma, GERD, DM, Dementia, Debility, Contracture presents to ED for evaluation. Pt is confused and unable to provide detailed history. Pt history taken from ED staff, and SNF staff. As per staff, the patient was found by [facility] staff to have decreased oral intake over the past 3 days, and complained of abdominal discomfort. Pt was found by SNF staff to be lethargic on exam with a blood glucose in the 80's. EMS notified and upon arrival the patent was found to have a glucose in the 60's and in distress. Pt initiated on a Dextrose drip and transported to [facility]. Pt seen and evaluated in ED and found to have Encephalopathy, CHETAN, Acidosis, Hypoglycemia. Pt is bedbound, and dependent 3/6 for activities of daily living. Pt admitted to [facility] unit and treated with IVF resuscitation therapy, Nephrology consulted in ED. No prior ad mission for review. All medication listed at time of admission has been reconciled. (1) CHETAN (acute kidney injury) IVF resuscitation therapy, Nephrology consulted in ED, urine electrolytes, renal ultrasound, avoid nephrotoxic agents, monitor uop q shift, (2) Acidosis IVF resuscitation therapy, Rechek CMP (3) Hypoglycemia Current Visit: Yes Status: Acute Plan to address problem: supportive care, IVF resuscitation therapy, (4) Cardiomyopathy thyroid panel, Echo, remote telemetry, supportive care. No abnormal findings on EKG. (5) Debility PT consulted, supportive care. (6) GERD (gastroesophageal reflux disease): PPI therapy, supportive care, (7) Diabetes Check A1c ADA diet, insulin, accu check, hypoglycemia protocol. (8) DVT prophylaxis SCD to BLE while in bed, prophylactic heparin Subjective Date of service: 04/26/19 Principal diagnosis: acute kidney injury due to VMN, cardiomyopathy, debilitation, metab acidosi Interval history: Patient seen and examined. Lying quietly in bed. Denies any chest pain or shortness of breath. No orthopnea or PND Objective - Exam Narrative Exam: Constitutional: Well-nourished well-developed. In no distress Head: Normocephalic atraumatic Eyes: Pupils are equal round and reactive to light Nose: No enlarged turbinates, no septal deviation. Mouth: Moist mucous membranes. Neck: Supple no thyromegaly. No bruit. No JVD Heart: Regular rate and rhythm, S1-S2 normal. No rubs murmurs or gallop Lungs: Clear to auscultation bilaterally. no rales or rhonchi Abdomen: Soft, nontender. Bowel sound are present. Extremities: No edema, no cyanosis, no clubbing. Neuro: Alert oriented Oriented x3. No focal sensory or motor deficit. Skin: No rashes or hyperpigmented spots Musculoskeletal system: No joint pain or swelling Hematological: No petechia or subcutanous hemorrhages. Immunological: No multiple septic spots on the skin Lymphatic: No generalized lymphadenopathy Psychiatry: Euthymic. Calm. - Constitutional Vitals: Vital Signs - 12hr 04/26/19 04/26/19 07:47 14:36 Temperature 98.9 F 98.8 F Pulse Rate 62 86 Respiratory 20 20 Rate Blood Pressure 160/83 170/76 O2 Sat by Pulse 99 100 Oximetry - Labs CBC & Chem 7: 04/26/19 05:56 04/26/19 05:56 Labs: Abnormal lab results 04/25/19 04/25/19 04/25/19 Range/Units 10:54 14:29 17:41 RBC (3.65-5.03) M/mm3 MCV (79-97) fl MCH (28-32) pg MCHC (30-34) % Lymph % (Auto) (13.4-35.0) % [place] % (Auto) (0.0-7.3) % Lymph # (1.2-5.4) K/mm3 [place] # (0.0-0.8) K/mm3 Seg Neutrophils % (40.0-70.0) % BUN (7-17) mg/dL Creatinine (0.7-1.2) mg/dL Glucose (65-100) mg/dL POC Glucose (70-105) Lactic Acid 4.80 H* (0.7-2.0) mmol/L Phosphorus (2.5-4.5) mg/dL Total Protein (6.3-8.2) g/dL Albumin (3.9-5) g/dL Lipase 8 L (13-60) units/L Urine Creatinine 52.1 H (0.1-20.0) mg/dL 04/26/19 04/26/19 04/26/19 Range/Units 05:56 05:56 16:33 RBC 3.27 L (3.65-5.03) M/mm3 MCV 101 H (79-97) fl MCH 35 H (28-32) pg MCHC 35 H (30-34) % Lymph % (Auto) 11.6 L (13.4-35.0) % [place] % (Auto) 10.8 H (0.0-7.3) % Lymph # 1.0 L (1.2-5.4) K/mm3 [place] # 0.9 H (0.0-0.8) K/mm3 Seg Neutrophils % 77.3 H (40.0-70.0) % BUN 59 H (7-17) mg/dL Creatinine 1.9 H (0.7-1.2) mg/dL Glucose 282 H (65-100) mg/dL POC Glucose 377 H (70-105) Lactic Acid (0.7-2.0) mmol/L Phosphorus 4.90 H (2.5-4.5) mg/dL Total Protein 6.2 L (6.3-8.2) g/dL Albumin 3.3 L (3.9-5) g/dL Lipase (13-60) units/L Urine Creatinine (0.1-20.0) mg/dL
[2019-04-26] MEDS: KENALOG TP SCH (16:52)
[2019-04-26] MEDS: D5/0.45NS 1,000 ML IV SCH (23:51)
[2019-04-27] MEDS: ULTRAM PO PRN (04:32)
[2019-04-27] MEDS: ZOFRAN IV PRN (05:02)
[2019-04-27] MEDS: TYLENOL PO PRN (06:20)
[2019-04-27 08:36] LABS: Basophils % (Auto) 0.2 % (0.0-1.8); Eosinophils # (Auto) 0.1 K/mm3 (0.0-0.4); Hematocrit 27.8 % (30.3-42.9); Hemoglobin 9.7 gm/dl (10.1-14.3); Lymphocytes # (Auto) 1.5 K/mm3 (1.2-5.4); Mean Corpuscular HGB Conc 35 % (30-34); Mean Corpuscular Volume 100 fl (79-97); Monocytes # (Auto) 0.8 K/mm3 (0.0-0.8); Monocytes % (Auto) 11.5 % (0.0-7.3); Platelet Count 223 K/mm3 (140-440); Red Blood Count 2.78 M/mm3 (3.65-5.03); Red Cell Distribution Width 14.2 % (13.2-15.2)
[2019-04-27] MEDS: HumaLOG SUB-Q SCH ×4 (08:50→22:01)
[2019-04-27] MEDS: KENALOG TP SCH (08:52)
[2019-04-27 09:01] LABS: Calcium 8.4 mg/dL (8.4-10.2)
[2019-04-27] MEDS: HEPARIN SUB-Q SCH ×2 (09:28→22:01)
[2019-04-27] MEDS: SODIUM CHLORIDE FLUSH SYRINGE 10 ML IV SCH ×2 (09:29→22:02)
[2019-04-27] MEDS: PROTONIX PO SCH (09:31)
--- NOTE | 2019-04-27 10:15 | Progress Note ---
Assessment and Plan Assessment and plan: 9 YO Female [facility] Facility Resident at [facility] with COPD, Asthma, GERD, DM, Dementia, Debility, Contracture presents to ED for evaluation. Pt is confused and unable to provide detailed history. Pt history taken from ED staff, and SNF staff. As per staff, the patient was found by custodial staff to have decreased oral intake over the past 3 days, and complained of abdominal discomfort. Pt was found by SNF staff to be lethargic on exam with a blood glucose in the 80's. EMS notified and upon arrival the patent was found to have a glucose in the 60's and in distress. Pt initiated on a Dextrose drip and transported to [facility]. Pt seen and evaluated in ED and found to have Encephalopathy, CHETAN, Acidosis, Hypoglycemia. Pt is bedbound, and dependent 3/6 for activities of daily living. Pt admitted to [facility] unit and treated with IVF resuscitation therapy, Nephrology consulted in ED. No prior admission for review. All medication listed at time of admission has been reconciled. (1) CHETAN (acute kidney injury) secndary to vasomotor nephropathy IVF resuscitation therapy, Nephrology consulted in ED, urine electrolytes, renal ultrasound, avoid nephrotoxic agents, monitor uop q shift, IMPROVING SOME (2) Acidosis IVF resuscitation therapy, Rechek CMP in am (3) Hypoglycemia Current Visit: Yes Status: Acute Plan to address problem: supportive care, IVF resuscitation therapy, (4) Cardiomyopathy thyroid panel, Echo, remote telemetry, supportive care. No abnormal findings on EKG. (5) Debility PT consulted, supportive care. (6) GERD (gastroesophageal reflux disease): PPI therapy, supportive care, (7) Diabetes Check A1c ADA diet, insulin, accu check, hypoglycemia protocol. (8) HYPOKALEMIA Replace (9)DVT prophylaxis SCD to BLE while in bed, prophylactic heparin Anticipate once close to baseline renal function History Interval history: Patient seen and examined. Lying quietly in bed. No adverse event reported overnight Denies any chest pain or shortness of breath. No orthopnea or PND Hospitalist Physical - Physical exam Narrative exam: Constitutional: Well-nourished well-developed. In no distress Head: Normocephalic atraumatic Eyes: Pupils are equal round and reactive to light Mouth: Moist mucous membranes. Neck: Supple no thyromegaly. No bruit. No JVD Heart: Regular rate and rhythm, S1-S2 normal. No rubs murmurs or gallop Lungs: Clear to auscultation bilaterally. no rales or rhonchi Abdomen: Soft, nontender. Bowel sound are present. Extremities: No edema, no cyanosis, no clubbing. Neuro: Alert oriented Oriented x2. No focal sensory or motor deficit. Skin: No rashes or hyperpigmented spots Musculoskeletal system: No joint pain or swelling Hematological: No petechia or subcutanous hemorrhages. Immunological: No multiple septic spots on the skin Lymphatic: No generalized lymphadenopathy Psychiatry: Euthymic. Calm. - Constitutional Vitals: Temp Pulse Resp BP Pulse Ox 98.6 F 60 18 121/49 97 04/27/19 07:16 04/27/19 07:16 04/27/19 07:16 04/27/19 07:16 04/27/19 07:16 General appearance: Present: mild distress Results - Labs CBC & Chem 7: 04/27/19 08:04 04/27/19 08:04 Labs: Laboratory Last Values WBC 6.7 K/mm3 (4.5-11.0) 04/27/19 08:04 RBC 2.78 M/mm3 (3.65-5.03) L 04/27/19 08:04 Hgb 9.7 gm/dl (10.1-14.3) L 04/27/19 08:04 Hct 27.8 % (30.3-42.9) L 04/27/19 08:04 MCV 100 fl (79-97) H 04/27/19 08:04 MCH 35 pg (28-32) H 04/27/19 08:04 MCHC 35 % (30-34) H 04/27/19 08:04 RDW 14.2 % (13.2-15.2) 04/27/19 08:04 Plt Count 223 K/mm3 (140-440) 04/27/19 08:04 Lymph % (Auto) 22.0 % (13.4-35.0) 04/27/19 08:04 [place] % (Auto) 11.5 % (0.0-7.3) H 04/27/19 08:04 Eos % (Auto) 1.0 % (0.0-4.3) 04/27/19 08:04 Baso % (Auto) 0.2 % (0.0-1.8) 04/27/19 08:04 Lymph # 1.5 K/mm3 (1.2-5.4) 04/27/19 08:04 [place] # 0.8 K/mm3 (0.0-0.8) 04/27/19 08:04 Eos # 0.1 K/mm3 (0.0-0.4) 04/27/19 08:04 Baso # 0.0 K/mm3 (0.0-0.1) 04/27/19 08:04 Seg Neutrophils % 65.3 % (40.0-70.0) 04/27/19 08:04 Seg Neutrophils # 4.4 K/mm3 (1.8-7.7) 04/27/19 08:04 PT 12.4 Sec. (12.2-14.9) 04/25/19 09:18 INR 0.95 (0.87-1.13) 04/25/19 09:18 APTT 28.3 Sec. (24.2-36.6) 04/25/19 09:18 Sodium 142 mmol/L (137-145) 04/27/19 08:04 Potassium 3.0 mmol/L (3.6-5.0) L 04/27/19 08:04 Chloride 101.2 mmol/L (98-107) 04/27/19 08:04 Carbon Dioxide 29 mmol/L (22-30) 04/27/19 08:04 15 mmol/L 04/27/19 08:04 BUN 52 mg/dL (7-17) H 04/27/19 08:04 1.8 mg/dL (0.7-1.2) H 04/27/19 08:04 Estimated GFR 27 ml/min 04/27/19 08:04 29 % 04/27/19 08:04 Glucose 87 mg/dL (65-100) 04/27/19 08:04 POC Glucose 93 (70-105) 04/27/19 07:23 Lactic Acid 1.50 mmol/L (0.7-2.0) 04/25/19 22:25 Calcium 8.4 mg/dL (8.4-10.2) 04/27/19 08:04 Phosphorus 3.20 mg/dL (2.5-4.5) D 04/27/19 08:04 Magnesium 1.60 mg/dL (1.7-2.3) L 04/27/19 08:04 0.40 mg/dL (0.1-1.2) 04/27/19 08:04 AST 19 units/L (5-40) 04/27/19 08:04 ALT 18 units/L (7-56) 04/27/19 08:04 48 units/L (35-129) 04/27/19 08:04 25.0 umol/L (25-60) 04/25/19 09:18 0.056 ng/mL (0.00-0.029) H 04/25/19 09:18 5.4 g/dL (6.3-8.2) L 04/27/19 08:04 3.0 g/dL (3.9-5) L 04/27/19 08:04 1.3 % 04/27/19 08:04 Triglycerides 66 mg/dL (2-149) 04/25/19 09:18 Cholesterol 113 mg/dL (50-199) 04/25/19 09:18 41 mg/dL (50-130) L 04/25/19 09:18 68 mg/dL (40-59) H 04/25/19 09:18 1.66 % 04/25/19 09:18 8 units/L (13-60) L 04/25/19 10:54 TSH 1.420 mlU/mL (0.270-4.200) 04/25/19 12:55 Free T4 1.27 ng/dL (0.76-1.46) 04/25/19 12:55 Yellow (Yellow) 04/25/19 Unknown Clear (Clear) 04/25/19 Unknown 5.0 (5.0-7.0) 04/25/19 Unknown Ur Specific [place] 1.011 (1.003-1.030) 04/25/19 Unknown <15 mg/dl mg/dL (Negative) 04/25/19 Unknown Neg mg/dL (Negative) 04/25/19 Unknown Neg mg/dL (Negative) 04/25/19 Unknown Neg (Negative) 04/25/19 Unknown Neg (Negative) 04/25/19 Unknown Neg (Negative) 04/25/19 Unknown < 2.0 mg/dL (<2.0) 04/25/19 Unknown Ur Leukocyte Esterase Neg (Negative) 04/25/19 Unknown 1.0 /HPF (0.0-6.0) 04/25/19 Unknown 1.0 /HPF (0.0-6.0) 04/25/19 Unknown 52.1 mg/dL (0.1-20.0) H 04/25/19 14:29 67 mmol/L 04/25/19 14:29 Salicylates < 0.3 mg/dL (2.8-20.0) L 04/25/19 09:18 Acetaminophen < 5.0 ug/mL (10.0-30.0) L 04/25/19 09:18 Plasma/Serum Alcohol < 0.01 % (0-0.07) 04/25/19 09:18 Active Medications - Current Medications Current Medications: Generic Name Dose Route Start Last Admin Trade Name Freq PRN Reason Stop Dose Admin Acetaminophen 650 mg 04/25/19 12:43 04/27/19 06:20 Tylenol PO 650 mg Q4H PRN Administration Pain MILD(1-3)/Fever >100.5/CALLAHAN Dextrose 50 ml 04/26/19 09:04 D50w (25gm) Syringe IV PRN PRN Hypoglycemia Heparin Sodium (Porcine) 5,000 unit 04/25/19 22:00 04/27/19 09:28 Heparin SUB-Q 5,000 unit Q12HR RUFINA Administration Hydralazine HCl 10 mg 04/25/19 12:46 04/25/19 15:25 Apresoline IV 10 mg Q6HR PRN Administration Hypertension Dextrose/Sodium Chloride 1,000 mls @ 75 mls/hr 04/26/19 23:45 04/26/19 23:51 D5/0.45ns IV 75 mls/hr DIRECT RUFINA Administration Insulin Human Isoph/Insulin Regular 25 unit 04/26/19 22:00 04/27/19 09:29 Humulin 70/30 SUB-Q 25 unit BID RUFINA Administration Insulin Human Lispro 0 unit 04/26/19 11:30 04/27/19 08:50 Humalog SUB-Q Not Given ACHS RUFINA Protocol Nitroglycerin 0.4 mg 04/25/19 12:45 Nitrostat SL Q5M PRN Chest Pain Ondansetron HCl 4 mg 04/25/19 12:43 04/27/19 05:02 Zofran IV 4 mg Q8H PRN Administration Nausea And Vomiting Ondansetron HCl 4 mg 04/25/19 12:53 Zofran Odt PO Q6H PRN Nausea And Vomiting Pantoprazole Sodium 40 mg 04/26/19 10:00 04/27/19 09:31 Protonix PO 40 mg QDAY RUFINA Administration Sodium Chloride 10 ml 04/25/19 22:00 04/27/19 09:29 Sodium Chloride Flush Syringe 10 Ml IV 10 ml BID RUFINA Administration Sodium Chloride 10 ml 04/25/19 12:43 Sodium Chloride Flush Syringe 10 Ml IV PRN PRN LINE FLUSH Tramadol HCl 50 mg 04/25/19 12:45 04/27/19 04:32 Ultram PO 50 mg TID PRN Administration Pain, Moderate (4-6) Triamcinolone Acetonide 1 applic 04/26/19 09:00 04/27/19 08:52 Kenalog TP 1 applic DAILY@0900 RUFINA Administration
[2019-04-27] MEDS: KCL 10MEQ/100ML 10 MEQ/100 ML BAG IV SCH ×2 (11:53→15:13)
[2019-04-27] MEDS: D50W (25GM) Syringe IV PRN (18:19)
[2019-04-27] MEDS: D5/0.45NS 1,000 ML IV SCH (19:35)
--- NOTE | 2019-04-27 20:40 | Progress Note ---
Assessment and Plan 1. Acute kidney injury: Vasomotor CHETAN in the setting of volume depletion. Renal US was negative for hydro. Renla function is improving. Continue IV fluids. Monitor renal function. Avoid nephrotoxic agents. Meds dosage based on GFR. 2. FEN: Continue IV fluids. Monitor lytes. 3. Lactic acidosis. 4. Hypoglycemia. 5. Dementia. Subjective Date of service: 04/27/19 Principal diagnosis: acute kidney injury due to VMN, cardiomyopathy, debilitation, metab acidosi Interval history: Patient was not seen for this encounter. Objective - Vital Signs Vital signs: Vital Signs - 12hr 04/27/19 04/27/19 13:25 20:00 Temperature 97.6 F 97.8 F Pulse Rate 65 62 Respiratory 18 18 Rate Blood Pressure 96/45 128/51 O2 Sat by Pulse 98 97 Oximetry - Lab 04/27/19 08:04 04/27/19 08:04 Most recent lab results Calcium 8.4 mg/dL (8.4-10.2) 04/27/19 08:04 Phosphorus 3.20 mg/dL (2.5-4.5) D 04/27/19 08:04 Magnesium 1.60 mg/dL (1.7-2.3) L 04/27/19 08:04 52.1 mg/dL (0.1-20.0) H 04/25/19 14:29 67 mmol/L 04/25/19 14:29 Medications & Allergies - Medications Allergies/Adverse Reactions: Allergies No Known Allergies Allergy (Verified 04/25/19 09:21) Home Medications: Home Medications Medication Instructions Recorded Confirmed Last Taken Type ALBUTEROL Inhaler (OR & NICU) 2 puff IH BID PRN 04/25/19 04/25/19 Unknown History [Proair] Insulin NPH/Regular [Novolin 70/30] 25 units SUB-Q QAM&QHS 04/25/19 04/25/19 Unknown History Nitroglycerin [Nitrostat] 0.4 mg SL Q5M PRN MDD 1.2 MG 04/25/19 04/25/19 Unknown History Ondansetron [Zofran TAB] 4 mg PO Q6HR PRN 04/25/19 04/25/19 Unknown History Pantoprazole [Protonix] 40 mg PO QDAY 04/25/19 04/25/19 Unknown History Triamcinolone 0.1% [Kenalog 0.1% 1 applic TP DAILY@0900 04/25/19 04/25/19 Unknown History CREAM] traMADol [Ultram] 50 mg PO TID PRN 04/25/19 04/25/19 Unknown History Active Medications: Generic Name Dose Route Start Last Admin Trade Name Freq PRN Reason Stop Dose Admin Acetaminophen 650 mg 04/25/19 12:43 04/27/19 06:20 Tylenol PO 650 mg Q4H PRN Administration Pain MILD(1-3)/Fever >100.5/CALLAHAN Dextrose 50 ml 04/26/19 09:04 04/27/19 18:19 D50w (25gm) Syringe IV 50 ml PRN PRN Administration Hypoglycemia Heparin Sodium (Porcine) 5,000 unit 04/25/19 22:00 04/27/19 09:28 Heparin SUB-Q 5,000 unit Q12HR RUFINA Administration Hydralazine HCl 10 mg 04/25/19 12:46 04/25/19 15:25 Apresoline IV 10 mg Q6HR PRN Administration Hypertension Dextrose/Sodium Chloride 1,000 mls @ 75 mls/hr 04/26/19 23:45 04/27/19 19:35 D5/0.45ns IV 75 mls/hr DIRECT RUFINA Administration Insulin Human Isoph/Insulin Regular 25 unit 04/26/19 22:00 04/27/19 09:29 Humulin 70/30 SUB-Q 25 unit BID RUFINA Administration Insulin Human Lispro 0 unit 04/26/19 11:30 04/27/19 18:10 Humalog SUB-Q Not Given ACHS [facility] Protocol Nitroglycerin 0.4 mg 04/25/19 12:45 Nitrostat SL Q5M PRN Chest Pain Ondansetron HCl 4 mg 04/25/19 12:43 04/27/19 05:02 Zofran IV 4 mg Q8H PRN Administration Nausea And Vomiting Ondansetron HCl 4 mg 04/25/19 12:53 Zofran Odt PO Q6H PRN Nausea And Vomiting Pantoprazole Sodium 40 mg 04/26/19 10:00 04/27/19 09:31 Protonix PO 40 mg QDAY RUFINA Administration Sodium Chloride 10 ml 04/25/19 22:00 04/27/19 09:29 Sodium Chloride Flush Syringe 10 Ml IV 10 ml BID RUFINA Administration Sodium Chloride 10 ml 04/25/19 12:43 Sodium Chloride Flush Syringe 10 Ml IV PRN PRN LINE FLUSH Tramadol HCl 50 mg 04/25/19 12:45 04/27/19 04:32 Ultram PO 50 mg TID PRN Administration Pain, Moderate (4-6) Triamcinolone Acetonide 1 applic 04/26/19 09:00 04/27/19 08:52 Kenalog TP 1 applic DAILY@0900 RUFINA Administration
[2019-04-28 05:29] LABS: Hemoglobin 9.4 gm/dl (10.1-14.3); Mean Corpuscular HGB Conc 35 % (30-34); Mean Corpuscular Volume 100 fl (79-97); Platelet Count 216 K/mm3 (140-440); Red Blood Count 2.72 M/mm3 (3.65-5.03); Red Cell Distribution Width 13.9 % (13.2-15.2)
[2019-04-28 05:59] LABS: Calcium 8.5 mg/dL (8.4-10.2)
[2019-04-28] MEDS ORDERED: MAGNESIUM SULFATE 1 GM in NACL 0.9% 50 ML IV ONE (06:15)
[2019-04-28] MEDS: D50W (25GM) Syringe IV PRN (06:16)
[2019-04-28] MEDS ORDERED: K-DUR PO ONE ×3 (06:16→14:47)
[2019-04-28] MEDS: D5/0.45NS 1,000 ML IV SCH (06:23)
[2019-04-28] MEDS: TYLENOL PO PRN (06:45)
[2019-04-28] MEDS: ZOFRAN IV PRN (06:45)
[2019-04-28] MEDS: KCL 10MEQ/100ML 10 MEQ/100 ML BAG IV SCH ×6 (07:45→18:45)
[2019-04-28] MEDS: HumaLOG SUB-Q SCH ×4 (08:06→22:17)
[2019-04-28] MEDS: KENALOG TP SCH (09:25)
[2019-04-28] MEDS: PROTONIX PO SCH (10:09)
[2019-04-28] MEDS: HEPARIN SUB-Q SCH ×2 (10:10→22:17)
[2019-04-28] MEDS: SODIUM CHLORIDE FLUSH SYRINGE 10 ML IV SCH ×2 (10:10→22:18)
[2019-04-28] MEDS: ULTRAM PO PRN (16:41)
--- NOTE | 2019-04-28 19:56 | Progress Note ---
Assessment and Plan 1. Acute kidney injury: Vasomotor CHETAN in the setting of volume depletion. Renal US was negative for hydro. Renla function is improving. Monitor renal function. Avoid nephrotoxic agents. Meds dosage based on GFR. 2. FEN: Hypokalemia, replete K. Monitor lytes. 3. Lactic acidosis: Improved. 4. Hypoglycemia. 5. Dementia. Subjective Date of service: 04/28/19 Principal diagnosis: acute kidney injury due to VMN, cardiomyopathy, debilitation, metab acidosi Interval history: Patient was seen and examined at the bedside. Objective - Vital Signs Vital signs: Vital Signs - 12hr 04/28/19 04/28/19 04/28/19 10:00 13:36 16:41 Temperature 98.0 F Pulse Rate 90 70 Respiratory 20 20 18 Rate Blood Pressure 125/50 O2 Sat by Pulse 90 99 Oximetry - General Appearance General appearance: well-developed, appears stated age, other (no distress) EENT: ATNC, PERRL, hearing intact, vision intact Neck: supple Respiratory: Present: Clear to Ascultation Cardiology: regular, S1S2, no murmurs Gastrointestinal: normoactive bowel sounds, no tenderness, no distended Integumentary: no rash, warm and dry Neurologic: confused, disoriented, other (able to move extremities) Musculoskeletal: other (no edema) - Lab 04/28/19 04:40 04/28/19 04:40 Most recent lab results Calcium 8.5 mg/dL (8.4-10.2) 04/28/19 04:40 Phosphorus 2.70 mg/dL (2.5-4.5) 04/28/19 04:40 Magnesium 1.60 mg/dL (1.7-2.3) L 04/28/19 04:40 52.1 mg/dL (0.1-20.0) H 04/25/19 14:29 67 mmol/L 04/25/19 14:29 Medications & Allergies - Medications Allergies/Adverse Reactions: Allergies No Known Allergies Allergy (Verified 04/25/19 09:21) Home Medications: Home Medications Medication Instructions Recorded Confirmed Last Taken Type ALBUTEROL Inhaler (OR & NICU) 2 puff IH BID PRN 04/25/19 04/25/19 Unknown History [Proair] Insulin NPH/Regular [Novolin /30] 25 units SUB-Q QAM&QHS 04/25/19 04/25/19 Unknown History Nitroglycerin [Nitrostat] 0.4 mg SL Q5M PRN MDD 1.2 MG 04/25/19 04/25/19 Unknown History Ondansetron [Zofran TAB] 4 mg PO Q6HR PRN 04/25/19 04/25/19 Unknown History Pantoprazole [Protonix] 40 mg PO QDAY 04/25/19 04/25/19 Unknown History Triamcinolone 0.1% [Kenalog 0.1% 1 applic TP DAILY@0900 04/25/19 04/25/19 Unknown History CREAM] traMADol [Ultram] 50 mg PO TID PRN 04/25/19 04/25/19 Unknown History Active Medications: Generic Name Dose Route Start Last Admin Trade Name Freq PRN Reason Stop Dose Admin Acetaminophen 650 mg 04/25/19 12:43 04/28/19 06:45 Tylenol PO 650 mg Q4H PRN Administration Pain MILD(1-3)/Fever >100.5/CALLAHAN Dextrose 50 ml 04/26/19 09:04 04/28/19 06:16 D50w (25gm) Syringe IV 50 ml PRN PRN Administration Hypoglycemia Heparin Sodium (Porcine) 5,000 unit 04/25/19 22:00 04/28/19 10:10 Heparin SUB-Q 5,000 unit Q12HR RUFINA Administration Hydralazine HCl 10 mg 04/25/19 12:46 04/25/19 15:25 Apresoline IV 10 mg Q6HR PRN Administration Hypertension Dextrose/Sodium Chloride 1,000 mls @ 75 mls/hr 04/26/19 23:45 04/28/19 06:23 D5/0.45ns IV 75 mls/hr DIRECT RUFINA Administration Insulin Human Isoph/Insulin Regular 25 unit 04/26/19 22:00 04/28/19 10:22 Humulin 70/30 SUB-Q Not Given BID RUFINA Insulin Human Lispro 0 unit 04/26/19 11:30 04/28/19 16:38 Humalog SUB-Q 1 unit ACHS RUFINA Administration Protocol Nitroglycerin 0.4 mg 04/25/19 12:45 Nitrostat SL Q5M PRN Chest Pain Ondansetron HCl 4 mg 04/25/19 12:43 04/28/19 06:45 Zofran IV 4 mg Q8H PRN Administration Nausea And Vomiting Ondansetron HCl 4 mg 04/25/19 12:53 Zofran Odt PO Q6H PRN Nausea And Vomiting Pantoprazole Sodium 40 mg 04/26/19 10:00 04/28/19 10:09 Protonix PO 40 mg QDAY RUFINA Administration Sodium Chloride 10 ml 04/25/19 22:00 04/28/19 10:10 Sodium Chloride Flush Syringe 10 Ml IV 10 ml BID RUFINA Administration Sodium Chloride 10 ml 04/25/19 12:43 Sodium Chloride Flush Syringe 10 Ml IV PRN PRN LINE FLUSH Tramadol HCl 50 mg 04/25/19 12:45 04/28/19 16:41 Ultram PO 50 mg TID PRN Administration Pain, Moderate (4-6) Triamcinolone Acetonide 1 applic 04/26/19 09:00 04/28/19 09:25 Kenalog TP 1 applic DAILY@0900 RUFINA Administration
[2019-04-29] MEDS: D5/0.45NS 1,000 ML IV SCH ×2 (02:43→17:28)
[2019-04-29 07:30] LABS: Calcium 8.4 mg/dL (8.4-10.2)
--- NOTE | 2019-04-29 07:31 | Progress Note ---
Assessment and Plan (1) CHETAN (acute kidney injury) secndary to vasomotor nephropathy IVF resuscitation therapy, Nephrology consulted in ED, urine electrolytes, renal ultrasound, avoid nephrotoxic agents, monitor uop q shift, IMPROVING SOME (2) Acidosis IVF resuscitation therapy, Rechek CMP in am (3) Hypoglycemia Current Visit: Yes Status: Acute Plan to address problem: supportive care, IVF resuscitation therapy, (4) Cardiomyopathy thyroid panel, Echo, remote telemetry, supportive care. No abnormal findings on EKG. (5) Debility PT consulted, supportive care. (6) GERD (gastroesophageal reflux disease): PPI therapy, supportive care, (7) Diabetes Check A1c ADA diet, insulin, accu check, hypoglycemia protocol. 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 Pt is confused and unable to provide detailed history. Pt history taken from ED staff, and SNF staff. As per staff, the patient was found by assisted staff to have decreased oral intake over the past 3 days, and complained of abdominal discomfort. Pt was found by SNF staff to be lethargic on exam with a blood glucose in the 80's. EMS notified and upon arrival the patent was found to have a glucose in the 60's and in distress. Pt initiated on a Dextrose drip and transported to [facility]. Pt seen and evaluated in ED and found to have Encephalopathy, CHETAN, Acidosis, Hypoglycemia. Pt is bedbound, and dependent 3/6 for activities of daily living. Pt admitted to [facility] and treated with IVF resuscitation therapy, Nephrology consulted in ED. No prior admission for review. All medication listed at time of admission has been reconciled. Objective - Constitutional Vitals: Vital Signs - 12hr 04/28/19 04/28/19 04/29/19 20:00 22:00 06:09 Temperature 98.5 F Pulse Rate 74 71 Pulse Rate [ 74 Right Brachial] Respiratory 18 18 Rate Blood Pressure 118/51 O2 Sat by Pulse 99 99 Oximetry General appearance: Present: no acute distress, well-nourished - EENT Eyes: PERRL, EOM intact ENT: hearing intact, clear oral mucosa Ears: bilateral: normal - Neck Neck: supple, normal ROM - Respiratory Respiratory effort: normal Respiratory: bilateral: CTA - Breasts Breasts: normal - Cardiovascular Heart rate: 78 Rhythm: regular Heart Sounds: Present: S1 & S2. Absent: gallop, rub Extremities: pulses intact, No edema, normal color, Full ROM - Gastrointestinal General gastrointestinal: Present: soft, non-tender, non-distended, normal bowel sounds - Genitourinary Female genitourinary: normal - Integumentary Integumentary: clear, warm, dry - Musculoskeletal Musculoskeletal: 1, strength equal bilaterally - Neurologic Neurologic: CNII-XII intact, moves all extremities - Psychiatric Psychiatric: memory intact, appropriate mood/affect, intact judgment & insight - Labs CBC & Chem 7: 04/28/19 04:40 04/28/19 04:40 Labs: Abnormal lab results 04/28/19 04/28/19 04/28/19 Range/Units 11:35 16:40 16:56 POC Glucose 202 H 167 H (70-105) Hemoglobin A1c 6.7 H (4-6) % 04/28/19 Range/Units 21:55 POC Glucose 224 H (70-105) Hemoglobin A1c (4-6) %
[2019-04-29] MEDS: HumaLOG SUB-Q SCH ×3 (08:06→17:26)
[2019-04-29] MEDS: KENALOG TP SCH (09:20)
[2019-04-29] MEDS: PROTONIX PO SCH (10:33)
[2019-04-29] MEDS: HEPARIN SUB-Q SCH ×2 (10:33→23:21)
[2019-04-29] MEDS: SODIUM CHLORIDE FLUSH SYRINGE 10 ML IV SCH ×2 (10:39→23:22)
--- NOTE | 2019-04-29 11:43 | Progress Note ---
Assessment and Plan 1. Acute kidney injury: Vasomotor CHETAN in the setting of volume depletion. Renal US was negative for hydro. Renla function is improving. Monitor renal function. Avoid nephrotoxic agents. Meds dosage based on GFR. 2. FEN: Hypokalemia, K level is better. Monitor lytes. 3. Lactic acidosis: Improved. 4. Hypoglycemia. 5. Dysphagia. 6. Dementia. Subjective Date of service: 04/29/19 Principal diagnosis: acute kidney injury due to VMN, cardiomyopathy, debilitation, metab acidosi Interval history: Patient was seen and examined at the bedside. Niece at the bedside. Objective - Vital Signs Vital signs: Vital Signs - 12hr 04/29/19 04/29/19 04/29/19 06:09 07:44 08:17 Temperature 97.9 F Pulse Rate 71 66 Respiratory 18 18 Rate Blood Pressure 136/60 O2 Sat by Pulse 99 97 Oximetry - General Appearance General appearance: well-developed, appears stated age, other (NG tube, b/l mittens noted) EENT: ATNC, PERRL Neck: supple Respiratory: Present: Clear to Ascultation Cardiology: regular, S1S2, no murmurs Gastrointestinal: normoactive bowel sounds, no tenderness, no distended Integumentary: no rash, warm and dry Neurologic: other (alert, non-verbal, not following any command) Musculoskeletal: other (no edema) - Lab 04/28/19 04:40 04/29/19 05:27 Most recent lab results Calcium 8.4 mg/dL (8.4-10.2) 04/29/19 05:27 Phosphorus 2.70 mg/dL (2.5-4.5) 04/28/19 04:40 Magnesium 1.70 mg/dL (1.7-2.3) 04/29/19 05:27 52.1 mg/dL (0.1-20.0) H 04/25/19 14:29 67 mmol/L 04/25/19 14:29 Medications & Allergies - Medications Allergies/Adverse Reactions: Allergies No Known Allergies Allergy (Verified 04/25/19 09:21) Home Medications: Home Medications Medication Instructions Recorded Confirmed Last Taken Type ALBUTEROL Inhaler (OR & NICU) 2 puff IH BID PRN 04/25/19 04/25/19 Unknown History [Proair] Insulin NPH/Regular [Novolin 70/30] 25 units SUB-Q QAM&QHS 04/25/19 04/25/19 Unknown History Nitroglycerin [Nitrostat] 0.4 mg SL Q5M PRN MDD 1.2 MG 04/25/19 04/25/19 Unknown History Ondansetron [Zofran TAB] 4 mg PO Q6HR PRN 04/25/19 04/25/19 Unknown History Pantoprazole [Protonix] 40 mg PO QDAY 04/25/19 04/25/19 Unknown History Triamcinolone 0.1% [Kenalog 0.1% 1 applic TP DAILY@0900 04/25/19 04/25/19 Unknown History CREAM] traMADol [Ultram] 50 mg PO TID PRN 04/25/19 04/25/19 Unknown History Active Medications: Generic Name Dose Route Start Last Admin Trade Name Freq PRN Reason Stop Dose Admin Acetaminophen 650 mg 04/25/19 12:43 04/28/19 06:45 Tylenol PO 650 mg Q4H PRN Administration Pain MILD(1-3)/Fever >100.5/CALLAHAN Dextrose 50 ml 04/26/19 09:04 04/28/19 06:16 D50w (25gm) Syringe IV 50 ml PRN PRN Administration Hypoglycemia Heparin Sodium (Porcine) 5,000 unit 04/25/19 22:00 04/29/19 10:33 Heparin SUB-Q 5,000 unit Q12HR RUFINA Administration Hydralazine HCl 10 mg 04/25/19 12:46 04/25/19 15:25 Apresoline IV 10 mg Q6HR PRN Administration Hypertension Dextrose/Sodium Chloride 1,000 mls @ 75 mls/hr 04/26/19 23:45 04/29/19 02:43 D5/0.45ns IV 75 mls/hr DIRECT RUFINA Administration Insulin Human Isoph/Insulin Regular 25 unit 04/26/19 22:00 04/29/19 10:58 Humulin 70/30 SUB-Q 25 unit BID RUFINA Administration Insulin Human Lispro 0 unit 04/26/19 11:30 04/29/19 10:58 Humalog SUB-Q Not Given ACHS RUFINA Protocol Nitroglycerin 0.4 mg 04/25/19 12:45 Nitrostat SL Q5M PRN Chest Pain Ondansetron HCl 4 mg 04/25/19 12:43 04/28/19 06:45 Zofran IV 4 mg Q8H PRN Administration Nausea And Vomiting Ondansetron HCl 4 mg 04/25/19 12:53 Zofran Odt PO Q6H PRN Nausea And Vomiting Pantoprazole Sodium 40 mg 04/26/19 10:00 04/29/19 10:33 Protonix PO 40 mg QDAY RUFINA Administration Sodium Chloride 10 ml 04/25/19 22:00 04/29/19 10:39 Sodium Chloride Flush Syringe 10 Ml IV 10 ml BID RUFINA Administration Sodium Chloride 10 ml 04/25/19 12:43 Sodium Chloride Flush Syringe 10 Ml IV PRN PRN LINE FLUSH Tramadol HCl 50 mg 04/25/19 12:45 04/28/19 16:41 Ultram PO 50 mg TID PRN Administration Pain, Moderate (4-6) Triamcinolone Acetonide 1 applic 04/26/19 09:00 04/29/19 09:20 Kenalog TP 1 applic DAILY@0900 RUFINA Administration
--- NOTE | 2019-04-29 17:21 | Progress Note ---
Assessment and Plan (1) CHETAN (acute kidney injury) secndary to vasomotor nephropathy IVF resuscitation therapy, Nephrology consulted in ED, urine electrolytes, renal ultrasound, avoid nephrotoxic agents, monitor uop q shift, IMPROVING Cr 1.4 Possible discharge tomorrow (2) Acidosis IVF resuscitation therapy, Rechek CMP in am (3) Acute Metabolic Encephaloathy sec to Hypoglycemia--Present on admission Current Visit: Yes Status: Acute Plan to address problem: supportive care, IVF resuscitation therapy, (4) Cardiomyopathy thyroid panel, Echo, remote telemetry, supportive care. No abnormal findings on EKG. (5) Debility PT consulted, supportive care. (6) GERD (gastroesophageal reflux disease): PPI therapy, supportive care, (7) Diabetes A1c 6.7 ADA diet, insulin, accu check, hypoglycemia protocol. 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 Pt is confused and unable to provide detailed history. Pt history taken from ED staff, and SNF staff. As per staff, the patient was found by intermediate staff to have decreased oral intake over the past 3 days, and complained of abdominal discomfort. Pt was found by SNF staff to be lethargic on exam with a blood glucose in the 80's. EMS notified and upon arrival the patent was found to have a glucose in the 60's and in distress. Pt initiated on a De xtrose drip and transported to [facility]. Pt seen and evaluated in ED and found to have Encephalopathy, CHETAN, Acidosis, Hypoglycemia. Pt is bedbound, and dependent 3/6 for activities of daily living. Pt admitted to [facility] and treated with IVF resuscitation therapy, Nephrology consulted in ED. No prior admission for review. All medication listed at time of admission has been reconciled. Objective - Constitutional Vitals: Vital Signs - 12hr 04/29/19 04/29/19 04/29/19 06:09 07:44 08:17 Temperature 97.9 F Pulse Rate 71 66 Respiratory 18 18 Rate Blood Pressure 136/60 O2 Sat by Pulse 99 97 Oximetry 04/29/19 12:38 Temperature 98.0 F Pulse Rate 68 Respiratory 18 Rate Blood Pressure 126/65 O2 Sat by Pulse 100 Oximetry General appearance: Present: no acute distress, well-nourished - EENT Eyes: PERRL, EOM intact ENT: hearing intact, clear oral mucosa Ears: bilateral: normal - Neck Neck: supple, normal ROM - Respiratory Respiratory effort: normal Respiratory: bilateral: CTA - Breasts Breasts: normal - Cardiovascular Heart rate: 58 Rhythm: regular Heart Sounds: Present: S1 & S2. Absent: gallop, rub Extremities: pulses intact, No edema, normal color, Full ROM - Gastrointestinal General gastrointestinal: Present: soft, non-tender, non-distended, normal bowel sounds - Genitourinary Female genitourinary: normal - Integumentary Integumentary: clear, warm, dry - Musculoskeletal Musculoskeletal: 1, strength equal bilaterally - Neurologic Neurologic: moves all extremities - Psychiatric Psychiatric: memory intact, appropriate mood/affect, intact judgment & insight - Labs CBC & Chem 7: 04/28/19 04:40 04/29/19 05:27 Labs: Abnormal lab results 04/28/19 04/29/19 04/29/19 Range/Units 21:55 05:27 07:50 BUN 27 H (7-17) mg/dL Creatinine 1.4 H (0.7-1.2) mg/dL Glucose 52 L (65-100) mg/dL POC Glucose 224 H 65 L (70-105) 04/29/19 04/29/19 Range/Units 10:58 16:32 BUN (7-17) mg/dL Creatinine (0.7-1.2) mg/dL Glucose (65-100) mg/dL POC Glucose 130 H 266 H (70-105)
[2019-04-30 06:25] LABS: Calcium 8.8 mg/dL (8.4-10.2)
[2019-04-30] MEDS: HumaLOG SUB-Q SCH ×3 (06:51→12:09)
[2019-04-30] MEDS: D5/0.45NS 1,000 ML IV SCH (07:00)
[2019-04-30] MEDS: SODIUM CHLORIDE FLUSH SYRINGE 10 ML IV SCH ×2 (07:03→09:28)
--- NOTE | 2019-04-30 07:50 | Discharge Summary ---
Providers - Providers Date of Admission: 04/25/19 12:43 Date of discharge: 04/30/19 Attending physician: TATO NORMAN MD 04/25/19 14:25 Physical Therapy Evaluation and Treat [CONS] Routine Comment: Reason For Exam: weakness 04/25/19 14:28 Consult to Physician [CONS] Routine Comment: spoke to dr. 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 Pt is confused and unable to provide detailed history. Pt history taken from ED staff, and SNF staff. As per staff, the patient was found by [facility] staff to have decreased oral intake over the past 3 days, and complained of abdominal discomfort. Pt was found by SNF staff to be lethargic on exam with a blood glucose in the 80's. EMS notified and upon arrival the patent was found to have a glucose in the 60's and in distress. Pt initiated on a Dextrose drip and transported to [facility]. Pt seen and evaluated in ED and found to have Encephalopathy, CHETAN, Acidosis, Hypoglycemia. Pt is bedbound, and dependent 3/6 for activities of daily living. Pt admitted to [facility] and treated with IVF resuscitation therapy, Nephrology consulted in ED. No prior admission for review. All medication listed at time of admission has been reconciled. (1) CHETAN (acute kidney injury) secndary to vasomotor nephropathy IVF resuscitation therapy, Nephrology consulted in ED, urine electrolytes, renal ultrasound, avoid nephrotoxic agents, monitor uop q shift, IMPROVING Cr 1.4---to 1.3 Disharge today (2) Acidosis Resolved (3) Acute Metabolic Encephaloathy sec to Hypoglycemia--Present on admission Current Visit: Yes Status: Acute Plan to address problem: supportive care, IVF resuscitation therapy, (4) Cardiomyopathy EF 55 to 60 percent Has LVH (5) Debility PT consulted, supportive care. (6) GERD (gastroesophageal reflux disease): PPI therapy, supportive care, (7) Diabetes A1c 6.7 ADA diet, insulin, accu check, hypoglycemia protocol. (8) HYPOKALEMIA Supplemented D/c to home Disposition: DC/[place]-03 SNF W [facility] CERT Core Measure Documentation - Palliative Care Palliative Care/ Comfort Measures: Not Applicable - Core Measures Any of the following diagnoses?: none Exam - Constitutional Vitals: Temp Pulse Resp BP Pulse Ox 98.2 F 59 L 18 183/67 96 04/30/19 02:26 04/30/19 02:26 04/30/19 02:26 04/30/19 02:26 04/30/19 02:26 Plan Follow up with: ZAIN VELIZ MD [Primary Care Provider] - 3-5 Days
[2019-04-30] MEDS: KENALOG TP SCH (08:56)
--- NOTE | 2019-04-30 09:16 | Progress Note ---
Assessment and Plan 1. Acute kidney injury: Vasomotor CHETAN in the setting of volume depletion. Renal US was negative for hydro. Renla function is improving. Monitor renal function. Avoid nephrotoxic agents. Meds dosage based on GFR. 2. FEN: Hypokalemia, K level is better. Monitor lytes. 3. Lactic acidosis: Improved. 4. Hypoglycemia. 5. Dysphagia. 6. Dementia. Subjective Date of service: 04/30/19 Principal diagnosis: acute kidney injury due to VMN, cardiomyopathy, debilitation, metab acidosi Interval history: Patient was seen and examined at the bedside. Objective - Vital Signs Vital signs: Vital Signs - 12hr 04/30/19 04/30/19 02:26 07:44 Temperature 98.2 F 98.0 F Pulse Rate 59 L 62 Respiratory 18 20 Rate Blood Pressure 183/67 181/66 O2 Sat by Pulse 96 99 Oximetry - General Appearance General appearance: well-developed, well-nourished, appears stated age, other (no distress) EENT: ATNC, PERRL, mucous membranes moist, hearing intact Neck: supple Respiratory: Present: Clear to Ascultation Cardiology: regular, S1S2, no murmurs Gastrointestinal: normoactive bowel sounds, no tenderness, no distended Integumentary: no rash, warm and dry Neurologic: no focal deficit, confused, disoriented Musculoskeletal: other (no edema) - Lab 04/28/19 04:40 04/30/19 04:27 Most recent lab results Calcium 8.8 mg/dL (8.4-10.2) 04/30/19 04:27 Phosphorus 2.70 mg/dL (2.5-4.5) 04/28/19 04:40 Magnesium 1.70 mg/dL (1.7-2.3) 04/29/19 05:27 52.1 mg/dL (0.1-20.0) H 04/25/19 14:29 67 mmol/L 04/25/19 14:29 Medications & Allergies - Medications Allergies/Adverse Reactions: Allergies No Known Allergies Allergy (Verified 04/25/19 09:21) Home Medications: Home Medications Medication Instructions Recorded Confirmed Last Taken Type Nitroglycerin [Nitrostat] 0.4 mg SL Q5M PRN MDD 1.2 MG 04/25/19 04/25/19 Unknown History Ondansetron [Zofran TAB] 4 mg PO Q6HR PRN 04/25/19 04/25/19 Unknown History Triamcinolone 0.1% [Kenalog 0.1% 1 applic TP DAILY@0900 04/25/19 04/25/19 Unknown History CREAM] ALBUTEROL Inhaler (OR & NICU) 2 puff IH BID PRN #1 inha 04/30/19 Unknown Rx [ProAir HFA Inhaler] Insulin NPH/Regular [NovoLIN 70/30] 25 unit SUB-Q BID #5 pen 04/30/19 Unknown Rx Pantoprazole [Protonix TAB] 40 mg PO QDAY #30 tablet 04/30/19 Unknown Rx traMADol [Ultram 50 MG tab] 50 mg PO BID PRN #60 tablet 04/30/19 Unknown Rx Active Medications: Generic Name Dose Route Start Last Admin Trade Name Freq PRN Reason Stop Dose Admin Acetaminophen 650 mg 04/25/19 12:43 04/28/19 06:45 Tylenol PO 650 mg Q4H PRN Administration Pain MILD(1-3)/Fever >100.5/CALLAHAN Dextrose 50 ml 04/26/19 09:04 04/28/19 06:16 D50w (25gm) Syringe IV 50 ml PRN PRN Administration Hypoglycemia Heparin Sodium (Porcine) 5,000 unit 04/25/19 22:00 04/29/19 23:21 Heparin SUB-Q 5,000 unit Q12HR RUFINA Administration Hydralazine HCl 10 mg 04/25/19 12:46 04/25/19 15:25 Apresoline IV 10 mg Q6HR PRN Administration Hypertension Dextrose/Sodium Chloride 1,000 mls @ 75 mls/hr 04/26/19 23:45 04/30/19 07:00 D5/0.45ns IV 75 mls/hr DIRECT RUFINA Administration Insulin Human Isoph/Insulin Regular 25 unit 04/26/19 22:00 04/29/19 10:58 Humulin 70/30 SUB-Q 25 unit BID RUFINA Administration Insulin Human Lispro 0 unit 04/26/19 11:30 04/30/19 08:56 Humalog SUB-Q 3 unit ACHS RUFINA Administration Protocol Nitroglycerin 0.4 mg 04/25/19 12:45 Nitrostat SL Q5M PRN Chest Pain Ondansetron HCl 4 mg 04/25/19 12:43 04/28/19 06:45 Zofran IV 4 mg Q8H PRN Administration Nausea And Vomiting Ondansetron HCl 4 mg 04/25/19 12:53 Zofran Odt PO Q6H PRN Nausea And Vomiting Pantoprazole Sodium 40 mg 04/26/19 10:00 04/29/19 10:33 Protonix PO 40 mg QDAY RUFINA Administration Sodium Chloride 10 ml 04/25/19 22:00 04/30/19 07:03 Sodium Chloride Flush Syringe 10 Ml IV 10 ml BID RUFINA Administration Sodium Chloride 10 ml 04/25/19 12:43 Sodium Chloride Flush Syringe 10 Ml IV PRN PRN LINE FLUSH Tramadol HCl 50 mg 04/25/19 12:45 04/28/19 16:41 Ultram PO 50 mg TID PRN Administration Pain, Moderate (4-6) Triamcinolone Acetonide 1 applic 04/26/19 09:00 04/29/19 09:20 Kenalog TP 1 applic DAILY@0900 RUFINA Administration
[2019-04-30] MEDS: PROTONIX PO SCH (09:20)
[2019-04-30] MEDS: HEPARIN SUB-Q SCH (09:22)
[2019-04-30 12:34] VITALS: BP 137/69
[2019-04-30] MEDS: TYLENOL PO PRN (12:46)
== END 2019-04-30 13:05 | DRG 682 ==
LOC: ED 08:25 → 2B-ACE 12:43
PROVIDERS: ADMIT Internal Medicine; ATTEND Internal Medicine
DX: N17.0 Acute kidney failure with tubular necrosis (principal); G93.41 Metabolic encephalopathy; R65.10 Systemic inflammatory response syndrome (SIRS) of non-infectious origin without acute organ dysfunction; E87.2 Acidosis; I42.9 Cardiomyopathy, unspecified; E11.649 Type 2 diabetes mellitus with hypoglycemia without coma; E87.6 Hypokalemia; R13.10 Dysphagia, unspecified; F03.90 Unspecified dementia, unspecified severity, without behavioral disturbance, psychotic disturbance, mood disturbance, and anxiety; J44.9 Chronic obstructive pulmonary disease, unspecified; K21.9 Gastro-esophageal reflux disease without esophagitis; E11.22 Type 2 diabetes mellitus with diabetic chronic kidney disease; N18.3 Chronic kidney disease, stage 3 (moderate); F32.9 Major depressive disorder, single episode, unspecified; Z82.49 Family history of ischemic heart disease and other diseases of the circulatory system; Z79.4 Long term (current) use of insulin; Z79.899 Other long term (current) drug therapy
CPT/HCPCS: 36415; 70450; 71045; 74176; 76770; 80048; 80053; 80061; 80320; 81001; 82140; 82570; 82962; 83036; 83690; 83735; 84100; 84300; 84439; 84443; 84484; 85025; 85027; 85610; 85730; 87040; 93005; 93010; 93306; 96365; 96375; G0378; G0480; J0360; J1644; J1815; J2270; J2405; J2543; J3475; J3480; J7030

== ENCOUNTER 2019-05-05 12:33 | Inpatient (IN) | payer MEDICARE ==
--- NOTE | 2019-05-05 13:13 | Emergency Department Report ---
Blank Doc - Documentation Documentation: 79-year-old female that presents wih generalized weakness with n/v.. This initial assessment/diagnostic orders/clinical plan/treatment(s) is/are subject to change based on patient's health status, clinical progression and re- assessment by fellow clinical providers in the ED. Further treatment and workup at subsequent clinical providers discretion. Patient/guardians urged not to elope from the ED as their condition may be serious if not clinically assessed and managed. Initial orders include: 1- Patient sent to [facility] for further evaluation and treatment 2- labs 3- UA
[2019-05-05 13:44] LABS: Hematocrit 32.6 % (30.3-42.9); Hemoglobin 10.9 gm/dl (10.1-14.3); Mean Corpuscular HGB Conc 33 % (30-34); Mean Corpuscular Volume 100 fl (79-97); Platelet Count 287 K/mm3 (140-440); Red Blood Count 3.26 M/mm3 (3.65-5.03); Red Cell Distribution Width 14.1 % (13.2-15.2)
[2019-05-05 14:13] LABS: Albumin 3.6 g/dL (3.9-5); Calcium 9.8 mg/dL (8.4-10.2)
[2019-05-05 14:38] LABS: Band Neutrophils # (Manual) 0.1 K/mm3; Basophils % (Manual) 0 % (0.0-1.8); Eosinophils % (Manual) 0 % (0.0-4.3); Total Cells Counted 100
[2019-05-05 14:39] LABS: Burr Cells 3+
[2019-05-05 14:40] LABS: Anisocytosis 1+; Large Platelets Few; Macrocytosis 1+; Platelet Estimate Consistent w Auto
[2019-05-05] MEDS ORDERED: ZOFRAN ONE (16:04)
[2019-05-05] MEDS ORDERED: ZOFRAN IV ONE (16:17)
[2019-05-05 17:23] LABS: Bilirubin,Urine NEG (Negative); Blood,Urine NEG (Negative); Color,Urine Yellow (Yellow); Hyaline Casts,Urine 2 /LPF; Mucus,Urine FEW /HPF; Protein,Urine <15 mg/dL mg/dL (Negative); Urobilinogen,Urine < 2.0 mg/dL (<2.0)
[2019-05-05] MEDS ORDERED: NACL 0.9% 1000 ML 1,000 ML IV ONE (18:33)
[2019-05-05] MEDS ORDERED: D50W (25GM) Syringe IV ONE (18:42)
--- NOTE | 2019-05-05 18:43 | Emergency Department Report ---
ED N/V/D HPI - General Chief complaint: Weakness Stated complaint: FATIQUE/VOMITING Time Seen by Provider: 05/05/19 13:11 Source: family Mode of arrival: Wheelchair Limitations: No Limitations - History of Present Illness Initial comments: 79-year-old female presents to ED with decreased by mouth intake, nausea vomiting over the last 3 days. Patient recently discharged for same [address] at that time showed 4 cm cystic mass in the head of the pancreas, otherwise unremarkable. Patient has history of dementia, currently at a SNF facility. Patient denies abdominal pain. She has had decreased by mouth intake and nausea, vomiting per the facility. MD complaint: nausea, vomiting -: days(s) (3) Description of Vomiting: food contents Associated Abdominal Pain: No Severity: moderate Consistency: constant Improves with: none Worsens with: eating Associated Symptoms: loss of appetite, nausea/vomiting - Related Data Home Medications Medication Instructions Recorded Confirmed Last Taken Nitroglycerin [Nitrostat] 0.4 mg SL Q5M PRN MDD 1.2 MG 04/25/19 05/05/19 Unknown Ondansetron [Zofran TAB] 4 mg PO Q6HR PRN 04/25/19 05/05/19 Unknown Triamcinolone 0.1% [Kenalog 0.1% 1 applic TP DAILY@0900 04/25/19 05/05/19 Unknown CREAM] Previous Rx's Medication Instructions Recorded Last Taken Type ALBUTEROL Inhaler (OR & NICU) 2 puff IH BID PRN #1 inha 04/30/19 Unknown Rx [ProAir HFA Inhaler] Insulin NPH/Regular [NovoLIN 70/30] 25 unit SUB-Q BID #5 pen 04/30/19 Unknown Rx Pantoprazole [Protonix TAB] 40 mg PO QDAY #30 tablet 04/30/19 Unknown Rx traMADol [Ultram 50 MG tab] 50 mg PO BID PRN #60 tablet 04/30/19 Unknown Rx Allergies Allergy/AdvReac Type Severity Reaction Status Date / Time No Known Allergies Allergy Verified 04/25/19 09:21 ED Review of Systems ROS: Stated complaint: FATIQUE/VOMITING Other details as noted in HPI Comment: All other systems reviewed and negative Constitutional: denies: fever Gastrointestinal: nausea, vomiting. denies: abdominal pain ED Past Medical Hx - Past Medical History Previous Medical History?: Yes Hx Hypertension: Yes Hx Heart Attack/AMI: Yes Hx Diabetes: Yes (Type II) Hx Renal Disease: Yes (Stage 3) Hx Sickle Cell Disease: No Hx Psychiatric Treatment: Yes (MDD, Dementia) Hx Dementia: Yes Additional medical history: Angina, - Surgical History Past Surgical History?: Yes Hx Open Heart Surgery: Yes (2011) - Social History Smoking Status: Never Smoker Substance Use Type: None - Medications Home Medications: Home Medications Medication Instructions Recorded Confirmed Last Taken Type Nitroglycerin [Nitrostat] 0.4 mg SL Q5M PRN MDD 1.2 MG 04/25/19 05/05/19 Unknown History Ondansetron [Zofran TAB] 4 mg PO Q6HR PRN 04/25/19 05/05/19 Unknown History Triamcinolone 0.1% [Kenalog 0.1% 1 applic TP DAILY@0900 04/25/19 05/05/19 Unknown History CREAM] ALBUTEROL Inhaler (OR & NICU) 2 puff IH BID PRN #1 inha 04/30/19 05/05/19 Unknown Rx [ProAir HFA Inhaler] Insulin NPH/Regular [NovoLIN 70/30] 25 unit SUB-Q BID #5 pen 04/30/19 05/05/19 Unknown Rx Pantoprazole [Protonix TAB] 40 mg PO QDAY #30 tablet 04/30/19 05/05/19 Unknown Rx traMADol [Ultram 50 MG tab] 50 mg PO BID PRN #60 tablet 04/30/19 05/05/19 Unknown Rx ED Physical Exam - General Limitations: No Limitations General appearance: alert, in no apparent distress - Head Head exam: Present: atraumatic, normocephalic - Eye Eye exam: Present: normal appearance, PERRL, EOMI - ENT ENT exam: Present: mucous membranes dry - Neck Neck exam: Present: normal inspection - Respiratory Respiratory exam: Present: normal lung sounds bilaterally. Absent: respiratory distress - Cardiovascular Cardiovascular Exam: Present: regular rate, normal rhythm - GI/Abdominal GI/Abdominal exam: Present: soft. Absent: distended, tenderness - Extremities Exam Extremities exam: Present: normal inspection - Neurological Exam Neurological exam: Present: alert - Psychiatric Psychiatric exam: Present: normal affect, normal mood - Skin Skin exam: Present: warm, dry, intact, normal color ED Course Vital Signs 05/05/19 05/05/19 05/05/19 13:12 16:14 17:16 Temperature 98.1 F 99.3 F Pulse Rate 94 H 86 Respiratory 18 20 16 Rate Blood Pressure 129/61 135/59 Blood Pressure [Right] O2 Sat by Pulse 100 100 Oximetry 05/05/19 20:38 Temperature 99.8 F H Pulse Rate 88 Respiratory 20 Rate Blood Pressure Blood Pressure 140/87 [Right] O2 Sat by Pulse 100 Oximetry ED Medical Decision Making - Lab Data Result diagrams: 05/06/19 09:00 05/06/19 07:42 - Medical Decision Making 79 yo F w/ nausea and vomiting. Vitals normal. Pt is afebrile. Abdomen soft, nontender. Labs show acute renal failure, hypoglycemia. D50 given. Pt recently discharged for same. IV fluids initiated. Will admit to hospitalist, Dr Melendez. - Differential Diagnosis hypokalemia, UTI, enteritis, dehydration Critical care attestation.: If time is entered above; I have spent that time in minutes in the direct care of this critically ill patient, excluding procedure time. ED Disposition Clinical Impression: Hypoglycemia, Nausea & vomiting, CHETAN (acute kidney injury) Disposition: OP ADMIT IP TO THIS HOSP Is pt being admited?: Yes Condition: Stable Time of Disposition: 19:51
[2019-05-05] MEDS ORDERED: ULTRAM PO PRN (20:16)
[2019-05-05] MEDS ORDERED: PROAIR IH PRN (20:16)
--- NOTE | 2019-05-05 20:16 | History and Physical Report ---
History of Present Illness Date of examination: 05/05/19 Date of admission: 05/05/19 19:51 Chief complaint: Altered sensorium.-1 day History of present illness: 79-year-old female presents to ED with decreased by mouth intake, nausea vomiting over the last 3 days. Patient recently discharged for same [address] at that time showed 4 cm cystic mass in the head of the pancreas, otherwise unremarkable. Patient has history of dementia, currently at a SNF facility. Patient denies abdominal pain. She has had decreased by mouth intake and nausea, vomiting per the facility.Frequent Low BG levels. Past Medical History Previous Medical History?: Yes Hypertension: Yes Heart Attack/AMI: Yes Diabetes: Yes (Type II) Renal Disease: Yes (Stage 3) Psychiatric Treatment: Yes (MDD, Dementia) Additional medical history: Angina, Surgical History Past Surgical History?: Yes Hx Open Heart Surgery: Yes (2011) Social History Smoking Status: Never Smoker Substance Use Type: None Family Hx Htn -Medications Home Medications: Home Medications Medication Instructions Recorded Confirmed Last Taken Type Nitroglycerin [Nitrostat] 0.4 mg SL Q5M PRN MDD 1.2 MG 04/25/19 04/25/19 Unknown History Ondansetron [Zofran TAB] 4 mg PO Q6HR PRN 04/25/19 04/25/19 Unknown History Triamcinolone 0.1% [Kenalog 0.1% 1 applic TP DAILY@0900 04/25/19 04/25/19 Unknown History CREAM] ALBUTEROL Inhaler (OR & NICU) 2 puff IH BID PRN #1 inha 04/30/19 Unknown Rx [ProAir HFA Inhaler] Insulin NPH/Regular [NovoLIN 70/30] 25 unit SUB-Q BID #5 pen 04/30/19 Unknown Rx Pantoprazole [Protonix TAB] 40 mg PO QDAY #30 tablet 04/30/19 Unknown Rx traMADol [Ultram 50 MG tab] 50 mg PO BID PRN #60 tablet 04/30/19 Unknown Rx Review of Systems ROS: Stated complaint: FATIQUE/VOMITING Other details as noted in HPI Comment: All other systems reviewed and negative Constitutional: denies: fever Gastrointestinal: nausea, vomiting. denies: abdominal pain Medications and Allergies Allergies Allergy/AdvReac Type Severity Reaction Status Date / Time No Known Allergies Allergy Verified 04/25/19 09:21 Home Medications Medication Instructions Recorded Confirmed Last Taken Type Nitroglycerin [Nitrostat] 0.4 mg SL Q5M PRN MDD 1.2 MG 04/25/19 05/05/19 Unknown History Ondansetron [Zofran TAB] 4 mg PO Q6HR PRN 04/25/19 05/05/19 Unknown History Triamcinolone 0.1% [Kenalog 0.1% 1 applic TP DAILY@0900 04/25/19 05/05/19 Unknown History CREAM] ALBUTEROL Inhaler (OR & NICU) 2 puff IH BID PRN #1 inha 04/30/19 05/05/19 Unknown Rx [ProAir HFA Inhaler] Insulin NPH/Regular [NovoLIN 70/30] 25 unit SUB-Q BID #5 pen 04/30/19 05/05/19 Unknown Rx Pantoprazole [Protonix TAB] 40 mg PO QDAY #30 tablet 04/30/19 05/05/19 Unknown Rx traMADol [Ultram 50 MG tab] 50 mg PO BID PRN #60 tablet 04/30/19 05/05/19 Unknown Rx Exam - Constitutional Vitals: Temp Pulse Resp BP Pulse Ox 99.3 F 86 16 135/59 100 05/05/19 17:16 05/05/19 17:16 05/05/19 17:16 05/05/19 17:16 05/05/19 17:16 General appearance: Present: no acute distress, well-nourished - EENT Eyes: Present: PERRL ENT: hearing intact, clear oral mucosa - Neck Neck: Present: supple, normal ROM - Respiratory Respiratory effort: normal Respiratory: bilateral: CTA - Cardiovascular Heart rate: 78 Rhythm: regular Heart Sounds: Present: S1 & S2. Absent: rub, click - Extremities Extremities: no ischemia, pulses intact, pulses symmetrical, No edema Peripheral Pulses: within normal limits - Abdominal General gastrointestinal: Present: soft, non-tender, non-distended, normal bowel sounds Female genitourinary: Present: normal - Rectal Rectal Exam: deferred - Integumentary Integumentary: Present: clear, warm, dry - Musculoskeletal Musculoskeletal: gait normal, strength equal bilaterally - Psychiatric Psychiatric: appropriate mood/affect, intact judgment & insight - Neurologic Neurologic: CNII-XII intact, moves all extremities - Allied Health Allied health notes reviewed: nursing, case management Results - Labs CBC & Chem 7: 05/05/19 13:20 05/05/19 13:20 Labs: Laboratory Last Values WBC 10.5 K/mm3 (4.5-11.0) 05/05/19 13:20 RBC 3.26 M/mm3 (3.65-5.03) L 05/05/19 13:20 Hgb 10.9 gm/dl (10.1-14.3) 05/05/19 13:20 Hct 32.6 % (30.3-42.9) 05/05/19 13:20 MCV 100 fl (79-97) H 05/05/19 13:20 MCH 33 pg (28-32) H 05/05/19 13:20 MCHC 33 % (30-34) 05/05/19 13:20 RDW 14.1 % (13.2-15.2) 05/05/19 13:20 Plt Count 287 K/mm3 (140-440) 05/05/19 13:20 Add Manual Diff Complete 05/05/19 13:20 Total Counted 100 05/05/19 13:20 Seg Neutrophils % Scenario Writer 05/05/19 13:20 Seg Neuts % (Manual) 90.0 % (40.0-70.0) H 05/05/19 13:20 1.0 % 05/05/19 13:20 6.0 % (13.4-35.0) L 05/05/19 13:20 Reactive Lymphs % (Man) 0 % 05/05/19 13:20 3.0 % (0.0-7.3) 05/05/19 13:20 0 % (0.0-4.3) 05/05/19 13:20 0 % (0.0-1.8) 05/05/19 13:20 0 % 05/05/19 13:20 0 % 05/05/19 13:20 0 % 05/05/19 13:20 0 % 05/05/19 13:20 Nucleated RBC % Not Reportable 05/05/19 13:20 Seg Neutrophils # Man 9.5 K/mm3 (1.8-7.7) H 05/05/19 13:20 Band Neutrophils # 0.1 K/mm3 05/05/19 13:20 0.6 K/mm3 (1.2-5.4) L 05/05/19 13:20 Abs React Lymphs (Man) 0.0 K/mm3 05/05/19 13:20 0.3 K/mm3 (0.0-0.8) 05/05/19 13:20 0.0 K/mm3 (0.0-0.4) 05/05/19 13:20 0.0 K/mm3 (0.0-0.1) 05/05/19 13:20 0.0 K/mm3 05/05/19 13:20 0.0 K/mm3 05/05/19 13:20 0.0 K/mm3 05/05/19 13:20 Blast Cells # 0.0 K/mm3 05/05/19 13:20 WBC Morphology Not Reportable 05/05/19 13:20 Hypersegmented Neuts Not Reportable 05/05/19 13:20 Hyposegmented Neuts Not Reportable 05/05/19 13:20 Hypogranular Neuts Not Reportable 05/05/19 13:20 Not Reportable 05/05/19 13:20 Not Reportable 05/05/19 13:20 Not Reportable 05/05/19 13:20 Not Reportable 05/05/19 13:20 Not Reportable 05/05/19 13:20 Not Reportable 05/05/19 13:20 Consistent w auto 05/05/19 13:20 Not Reportable 05/05/19 13:20 Plt Clumps, EDTA Not Reportable 05/05/19 13:20 Few 05/05/19 13:20 Not Reportable 05/05/19 13:20 Not Reportable 05/05/19 13:20 Plt Morphology Comment Not Reportable 05/05/19 13:20 RBC Morphology Not Reportable 05/05/19 13:20 Dimorphic RBCs Not Reportable 05/05/19 13:20 Not Reportable 05/05/19 13:20 Not Reportable 05/05/19 13:20 Not Reportable 05/05/19 13:20 1+ 05/05/19 13:20 Not Reportable 05/05/19 13:20 1+ 05/05/19 13:20 Not Reportable 05/05/19 13:20 Not Reportable 05/05/19 13:20 Not Reportable 05/05/19 13:20 Not Reportable 05/05/19 13:20 Not Reportable 05/05/19 13:20 Not Reportable 05/05/19 13:20 Not Reportable 05/05/19 13:20 Not Reportable 05/05/19 13:20 Not Reportable 05/05/19 13:20 3+ 05/05/19 13:20 Not Reportable 05/05/19 13:20 Not Reportable 05/05/19 13:20 Not Reportable 05/05/19 13:20 Acanthocytes (Spur) Not Reportable 05/05/19 13:20 Rouleaux Not Reportable 05/05/19 13:20 Not Reportable 05/05/19 13:20 Not Reportable 05/05/19 13:20 Not Reportable 05/05/19 13:20 Not Reportable 05/05/19 13:20 Hem Pathologist Commnt No 05/05/19 13:20 Sodium 143 mmol/L (137-145) 05/05/19 13:20 Potassium 3.9 mmol/L (3.6-5.0) 05/05/19 13:20 Chloride 99.7 mmol/L (98-107) 05/05/19 13:20 Carbon Dioxide 24 mmol/L (22-30) 05/05/19 13:20 23 mmol/L 05/05/19 13:20 BUN 27 mg/dL (7-17) H 05/05/19 13:20 1.9 mg/dL (0.7-1.2) H 05/05/19 13:20 Estimated GFR 26 ml/min 05/05/19 13:20 14 % 05/05/19 13:20 Glucose 64 mg/dL (65-100) L 05/05/19 13:20 POC Glucose 57 (70-105) L 05/05/19 18:49 Calcium 9.8 mg/dL (8.4-10.2) 05/05/19 13:20 0.50 mg/dL (0.1-1.2) 05/05/19 13:20 AST 25 units/L (5-40) 05/05/19 13:20 ALT 18 units/L (7-56) 05/05/19 13:20 57 units/L (35-129) 05/05/19 13:20 6.7 g/dL (6.3-8.2) 05/05/19 13:20 3.6 g/dL (3.9-5) L 05/05/19 13:20 1.2 % 05/05/19 13:20 15 units/L (13-60) 05/05/19 13:20 Yellow (Yellow) 05/05/19 17:05 Clear (Clear) 05/05/19 17:05 6.0 (5.0-7.0) 05/05/19 17:05 Ur Specific [place] 1.009 (1.003-1.030) 05/05/19 17:05 <15 mg/dl mg/dL (Negative) 05/05/19 17:05 Neg mg/dL (Negative) 05/05/19 17:05 Neg mg/dL (Negative) 05/05/19 17:05 Neg (Negative) 05/05/19 17:05 Neg (Negative) 05/05/19 17:05 Neg (Negative) 05/05/19 17:05 < 2.0 mg/dL (<2.0) 05/05/19 17:05 Ur Leukocyte Esterase Neg (Negative) 05/05/19 17:05 1.0 /HPF (0.0-6.0) 05/05/19 17:05 2.0 /HPF (0.0-6.0) 05/05/19 17:05 U Epithel Cells (Auto) < 1.0 /HPF (0-13.0) 05/05/19 17:05 Hyaline Casts 2 /LPF 05/05/19 17:05 Few /HPF 05/05/19 17:05 Short CBC 05/05/19 Range/Units 13:20 WBC 10.5 (4.5-11.0) K/mm3 Hgb 10.9 (10.1-14.3) gm/dl Hct 32.6 (30.3-42.9) % Plt Count 287 (140-440) K/mm3 BMP 05/05/19 13:20 Sodium 143 Potassium 3.9 Chloride 99.7 Carbon Dioxide 24 BUN 27 H Creatinine 1.9 H Glucose 64 L Calcium 9.8 Liver Function 05/05/19 Range/Units 13:20 Total Bilirubin 0.50 (0.1-1.2) mg/dL AST 25 (5-40) units/L ALT 18 (7-56) units/L Alkaline Phosphatase 57 (35-129) units/L Albumin 3.6 L (3.9-5) g/dL Urine 05/05/19 Range/Units 17:05 Urine Color Yellow (Yellow) Urine pH 6.0 (5.0-7.0) Ur Specific [place] 1.009 (1.003-1.030) Urine Protein <15 mg/dl (Negative) mg/dL Urine Glucose (UA) Neg (Negative) mg/dL Assessment and Plan Advance Directives: Yes (Full code) VTE prophylaxis?: Chemical Plan of care discussed with patient/family: Yes - Patient Problems (1) Acute encephalopathy Current Visit: Yes Status: Acute Plan to address problem: Metabolic Sec to Hypoglycemia Patient with poor PO intake. Decrease insulin dosage. Coverage only for now (2) CHETAN (acute kidney injury) Current Visit: Yes Status: Acute Plan to address problem: IV Fluids for now ATN (3) IDDM (insulin dependent diabetes mellitus) Current Visit: Yes Status: Chronic Plan to address problem: Will hold insulin Low dose coverage for now (4) GERD (gastroesophageal reflux disease) Current Visit: Yes Status: Chronic Qualifiers: Esophagitis presence: without esophagitis Qualified Code(s): K21.9 - Gastro-esophageal reflux disease without esophagitis Plan to address problem: On Protonix (5) Asthma Current Visit: Yes Status: Inactive Qualifiers: Asthma severity: unspecified severity Plan to address problem: Bronchodilators prn (6) DVT prophylaxis Current Visit: No Status: Acute Plan to address problem: On Lovenox and GI prophylaxis
[2019-05-05] MEDS ORDERED: PROVENTIL IH PRN ×2 (20:52→21:00)
[2019-05-05] MEDS: PROTONIX PO SCH (21:37)
[2019-05-05] MEDS: HumaLOG SUB-Q SCH (22:55)
[2019-05-06] MEDS ORDERED: TYLENOL PO PRN (07:34)
[2019-05-06] MEDS ORDERED: ZOFRAN IV PRN (07:34)
[2019-05-06] MEDS ORDERED: DILAUDID IV PRN (07:34)
[2019-05-06] MEDS ORDERED: SODIUM CHLORIDE FLUSH SYRINGE 10 ML IV PRN (07:34)
[2019-05-06] MEDS: HumaLOG SUB-Q SCH ×5 (08:10→23:30)
[2019-05-06] MEDS: NACL 0.9% 1000 ML 1,000 ML IV SCH ×2 (08:24→17:49)
[2019-05-06 08:27] LABS: Albumin 3.2 g/dL (3.9-5); Calcium 8.8 mg/dL (8.4-10.2); Hematocrit TNR % (30.3-42.9); Hemoglobin TNR gm/dl (10.1-14.3); Mean Corpuscular HGB Conc TNR % (30-34); Mean Corpuscular Volume TNR fl (79-97); Platelet Count TNR K/mm3 (140-440); Red Blood Count TNR M/mm3 (3.65-5.03); Red Cell Distribution Width TNR % (13.2-15.2)
[2019-05-06 08:28] LABS: Basophils # (Auto) TNR K/mm3 (0.0-0.1); Basophils % (Auto) TNR % (0.0-1.8); Eosinophils # (Auto) TNR K/mm3 (0.0-0.4); Eosinophils % (Auto) TNR % (0.0-4.3); Lymphocytes # (Auto) TNR K/mm3 (1.2-5.4); Lymphocytes % (Auto) TNR % (13.4-35.0); Mean Platelet Volume TNR fl (6-12); Monocytes # (Auto) TNR K/mm3 (0.0-0.8); Monocytes % (Auto) TNR % (0.0-7.3)
[2019-05-06] MEDS: PROTONIX PO SCH (09:04)
[2019-05-06] MEDS: SODIUM CHLORIDE FLUSH SYRINGE 10 ML IV SCH ×2 (09:05→23:14)
[2019-05-06] MEDS: KENALOG TP SCH (09:07)
[2019-05-06 09:09] LABS: Hematocrit 25.6 % (30.3-42.9); Hemoglobin 8.9 gm/dl (10.1-14.3); Mean Corpuscular HGB Conc 35 % (30-34); Mean Corpuscular Volume 101 fl (79-97); Platelet Count 207 K/mm3 (140-440); Red Blood Count 2.55 M/mm3 (3.65-5.03)
--- NOTE | 2019-05-06 14:38 | Progress Note ---
Assessment and Plan Assessment and plan: Patient is a 79 yo woman from [facility] with a history of COPD, GERD, DM 2, Dementia, chronic Debility and contractures with functional quadriplegia who presents to [facility] ED on 05/05/19 with AMS, decreased oral intake. She was just discharged from here on 04/30/19 with same complaints and admitted with ARF with a Creatinine of 2.1. She was discharged with a Creatinine of 1.3 on 04/30/19. Now Cr is back up to 1.9. (1) Acute metabolic encephalopathy Current Visit: Yes Status: Acute Plan to address problem: Metabolic Sec to Hypoglycemia Patient with poor PO intake. Decrease insulin dosage. Coverage only for now (2) CHETAN (acute kidney injury) Current Visit: Yes Status: Acute Plan to address problem: IV Fluids for now ATN (3) IDDM (insulin dependent diabetes mellitus) Current Visit: Yes Status: Chronic Plan to address problem: Will hold insulin Low dose coverage for now (4) GERD (gastroesophageal reflux disease) Current Visit: Yes Status: Chronic Qualifiers: Esophagitis presence: without esophagitis Qualified Code(s): K21.9 - Gastro-esophageal reflux disease without esophagitis Plan to address problem: treat with Protonix (5) Asthma Current Visit: Yes Status: Inactive Qualifiers: Asthma severity: unspecified severity Plan to address problem: Bronchodilators prn (6) DVT prophylaxis Current Visit: No Status: Acute Plan to address problem: On Lovenox and GI prophylaxis History Interval history: Patient was seen and examined. Follow-up on current diagnosis of AMS. No overnight events reported to me. Imaging, nursing note, chart, labs and old chart reviewed. Patient is non-communicative Hospitalist Physical - Physical exam Narrative exam: Gen: cachetic, chronic disable appearing, NAD, a/o x 2, missed year HEENT: NCAT, EOMI, PERRL, OP Clear Neck: supple, no adenopathy, no thyromegaly, no JVD CVS/Heart: RRR, normal S1S2, pulses present bilaterally Chest/Lungs: CTA B, Symmetrical chest expansion, good air entry bilaterally GI/Abdomen: soft, NTND, good bowel sounds, no guarding or rebound /Bladder: no suprapubic tenderness, no CVA or paraspinal tenderness Extermity/Skin: no c/c/e, no obvious rash MSK: contractures Neuro: CN 2-12 grossly intact, no new focal deficits Psych: calm - Constitutional Vitals: Temp Pulse Resp BP Pulse Ox 99.1 F 96 H 16 132/51 100 05/06/19 07:26 05/06/19 07:26 05/06/19 08:03 05/06/19 07:26 05/06/19 07:26 General appearance: Present: no acute distress, cachectic. Absent: well- nourished Results - Labs CBC & Chem 7: 05/06/19 09:00 05/06/19 07:42 Labs: Laboratory Last Values WBC 6.6 K/mm3 (4.5-11.0) 05/06/19 09:00 RBC 2.55 M/mm3 (3.65-5.03) L 05/06/19 09:00 Hgb 8.9 gm/dl (10.1-14.3) L 05/06/19 09:00 Hct 25.6 % (30.3-42.9) L D 05/06/19 09:00 MCV 101 fl (79-97) H 05/06/19 09:00 MCH 35 pg (28-32) H 05/06/19 09:00 MCHC 35 % (30-34) H 05/06/19 09:00 RDW 14.0 % (13.2-15.2) 05/06/19 09:00 Plt Count 207 K/mm3 (140-440) 05/06/19 09:00 Lymph % (Auto) TNR 05/06/19 07:42 Jessamine % (Auto) TNR 05/06/19 07:42 Eos % (Auto) TNR 05/06/19 07:42 Baso % (Auto) TNR 05/06/19 07:42 Lymph # TNR 05/06/19 07:42 Jessamine # TNR 05/06/19 07:42 Eos # TNR 05/06/19 07:42 Baso # TNR 05/06/19 07:42 Add Manual Diff TNR 05/06/19 07:42 Total Counted 100 05/05/19 13:20 Seg Neutrophils % TNR 05/06/19 07:42 Seg Neuts % (Manual) 90.0 % (40.0-70.0) H 05/05/19 13:20 1.0 % 05/05/19 13:20 6.0 % (13.4-35.0) L 05/05/19 13:20 Reactive Lymphs % (Man) 0 % 05/05/19 13:20 3.0 % (0.0-7.3) 05/05/19 13:20 0 % (0.0-4.3) 05/05/19 13:20 0 % (0.0-1.8) 05/05/19 13:20 0 % 05/05/19 13:20 0 % 05/05/19 13:20 0 % 05/05/19 13:20 0 % 05/05/19 13:20 Nucleated RBC % Not Reportable 05/05/19 13:20 Seg Neutrophils # TNR 05/06/19 07:42 Seg Neutrophils # Man 9.5 K/mm3 (1.8-7.7) H 05/05/19 13:20 Band Neutrophils # 0.1 K/mm3 05/05/19 13:20 0.6 K/mm3 (1.2-5.4) L 05/05/19 13:20 Abs React Lymphs (Man) 0.0 K/mm3 05/05/19 13:20 0.3 K/mm3 (0.0-0.8) 05/05/19 13:20 0.0 K/mm3 (0.0-0.4) 05/05/19 13:20 0.0 K/mm3 (0.0-0.1) 05/05/19 13:20 0.0 K/mm3 05/05/19 13:20 0.0 K/mm3 05/05/19 13:20 0.0 K/mm3 05/05/19 13:20 Blast Cells # 0.0 K/mm3 05/05/19 13:20 WBC Morphology Not Reportable 05/05/19 13:20 Hypersegmented Neuts Not Reportable 05/05/19 13:20 Hyposegmented Neuts Not Reportable 05/05/19 13:20 Hypogranular Neuts Not Reportable 05/05/19 13:20 Not Reportable 05/05/19 13:20 Not Reportable 05/05/19 13:20 Not Reportable 05/05/19 13:20 Not Reportable 05/05/19 13:20 Not Reportable 05/05/19 13:20 Not Reportable 05/05/19 13:20 Consistent w auto 05/05/19 13:20 Not Reportable 05/05/19 13:20 Plt Clumps, EDTA Not Reportable 05/05/19 13:20 Few 05/05/19 13:20 Not Reportable 05/05/19 13:20 Not Reportable 05/05/19 13:20 Plt Morphology Comment Not Reportable 05/05/19 13:20 RBC Morphology Not Reportable 05/05/19 13:20 Dimorphic RBCs Not Reportable 05/05/19 13:20 Not Reportable 05/05/19 13:20 Not Reportable 05/05/19 13:20 Not Reportable 05/05/19 13:20 1+ 05/05/19 13:20 Not Reportable 05/05/19 13:20 1+ 05/05/19 13:20 Not Reportable 05/05/19 13:20 Not Reportable 05/05/19 13:20 Not Reportable 05/05/19 13:20 Not Reportable 05/05/19 13:20 Not Reportable 05/05/19 13:20 Not Reportable 05/05/19 13:20 Not Reportable 05/05/19 13:20 Not Reportable 05/05/19 13:20 Not Reportable 05/05/19 13:20 3+ 05/05/19 13:20 Not Reportable 05/05/19 13:20 Not Reportable 05/05/19 13:20 Not Reportable 05/05/19 13:20 Acanthocytes (Spur) Not Reportable 05/05/19 13:20 Rouleaux Not Reportable 05/05/19 13:20 Not Reportable 05/05/19 13:20 Not Reportable 05/05/19 13:20 Not Reportable 05/05/19 13:20 Not Reportable 05/05/19 13:20 Hem Pathologist Commnt No 05/05/19 13:20 Sodium 139 mmol/L (137-145) 05/06/19 07:42 Potassium 4.3 mmol/L (3.6-5.0) 05/06/19 07:42 Chloride 99.5 mmol/L (98-107) 05/06/19 07:42 Carbon Dioxide 26 mmol/L (22-30) 05/06/19 07:42 18 mmol/L 05/06/19 07:42 BUN 30 mg/dL (7-17) H 05/06/19 07:42 1.9 mg/dL (0.7-1.2) H 05/06/19 07:42 Estimated GFR 26 ml/min 05/06/19 07:42 16 % 05/06/19 07:42 Glucose 84 mg/dL (65-100) 05/06/19 07:42 POC Glucose 159 (70-105) H 05/06/19 11:09 6.1 % (4-6) H 05/06/19 08:09 Calcium 8.8 mg/dL (8.4-10.2) 05/06/19 07:42 0.50 mg/dL (0.1-1.2) 05/06/19 07:42 AST 21 units/L (5-40) 05/06/19 07:42 ALT 13 units/L (7-56) 05/06/19 07:42 49 units/L (35-129) 05/06/19 07:42 5.7 g/dL (6.3-8.2) L 05/06/19 07:42 3.2 g/dL (3.9-5) L 05/06/19 07:42 1.3 % 05/06/19 07:42 15 units/L (13-60) 05/05/19 13:20 Yellow (Yellow) 05/05/19 17:05 Clear (Clear) 05/05/19 17:05 6.0 (5.0-7.0) 05/05/19 17:05 Ur Specific [place] 1.009 (1.003-1.030) 05/05/19 17:05 <15 mg/dl mg/dL (Negative) 05/05/19 17:05 Neg mg/dL (Negative) 05/05/19 17:05 Neg mg/dL (Negative) 05/05/19 17:05 Neg (Negative) 05/05/19 17:05 Neg (Negative) 05/05/19 17:05 Neg (Negative) 05/05/19 17:05 < 2.0 mg/dL (<2.0) 05/05/19 17:05 Ur Leukocyte Esterase Neg (Negative) 05/05/19 17:05 1.0 /HPF (0.0-6.0) 05/05/19 17:05 2.0 /HPF (0.0-6.0) 05/05/19 17:05 U Epithel Cells (Auto) < 1.0 /HPF (0-13.0) 05/05/19 17:05 Hyaline Casts 2 /LPF 05/05/19 17:05 Few /HPF 05/05/19 17:05 Active Medications - Current Medications Current Medications: Generic Name Dose Route Start Last Admin Trade Name Freq PRN Reason Stop Dose Admin Acetaminophen 650 mg 05/06/19 07:34 Tylenol PO Q4H PRN Pain MILD(1-3)/Fever >100.5/CALLAHAN Albuterol 2.5 mg 05/05/19 21:00 Proventil IH BIDRT PRN Shortness Of Breath Hydromorphone HCl 0.25 mg 05/06/19 07:34 Dilaudid IV Q3H PRN Pain, Moderate (4-6) Sodium Chloride 1,000 mls @ 100 mls/hr 05/06/19 08:00 05/06/19 08:24 Nacl 0.9% 1000 Ml IV 100 mls/hr DIRECT RUFINA Administration Insulin Human Lispro 0 unit 05/05/19 22:00 05/06/19 13:18 Humalog SUB-Q Not Given ACHS [facility] Protocol Ondansetron HCl 4 mg 05/06/19 07:34 Zofran IV Q8H PRN Nausea And Vomiting Pantoprazole Sodium 40 mg 05/05/19 21:00 05/06/19 09:04 Protonix PO 40 mg QDAY RUFINA Administration Sodium Chloride 10 ml 05/06/19 10:00 05/06/19 09:05 Sodium Chloride Flush Syringe 10 Ml IV 10 ml BID RUFINA Administration Sodium Chloride 10 ml 05/06/19 07:34 Sodium Chloride Flush Syringe 10 Ml IV PRN PRN LINE FLUSH Tramadol HCl 50 mg 05/05/19 20:16 Ultram PO BID PRN Pain, Moderate (4-6) Triamcinolone Acetonide 1 applic 05/06/19 09:00 05/06/19 09:07 Kenalog TP 1 applic DAILY@0900 RUFINA Administration Nutrition/Malnutrition Assess - Dietary Evaluation Nutrition/Malnutrition Findings: Nutrition Notes Start: 05/06/19 09:31 Freq: Status: Active Protocol: Document 05/06/19 09:31 DW (Rec: 05/06/19 10:49 DW [id number]) Co-Sign 05/06/19 09:31 LP Nutrition Notes Need for Assessment generated from: MD Order Initial or Follow up Assessment Current Diagnosis CKD(stage I-IV),Diabetes, Hypertension Other Pertinent Diagnosis Dementia Current Diet Consistent CHO Labs/Tests Glu: 64 Pertinent Medications Reviewed Height 5 ft 2 in Weight 58.876 kg [place] Body Weight (kg) 50.00 BMI 23.7 Weight Status Appropriate Subjective/Other Information Pt stated her appetite was not good this morning and ate 0% of her breaksfast. Pt did consume 100% of her ONS and stated that she likes to drink her meals instead of consuming whole foods and loves her ONS. Burn Absent Trauma Absent GI Symptoms None Food Allergy No Minimum of two criteria No #1 Nutrition Diagnosis Inadequate oral intake Etiology poor appetite, dementia and advanced age As Evidenced by Signs and Symptoms 0% of PO intake at breakfast and pt stated she prefers to drink ONS instead of whole foods Is patient on ventilator? No Is Patient Ambulatory and/or Out of Bed No REE-([facility]-confined to bed) 1227.288 Calculation Used for Recommendations [facility] Additional Notes PRO needs: 59-71g (1.0-1.2g/kg ) Fluids: 1 mL/kcal Nutrition Intervention Change Diet Order: Continue current diet Add Supplement/Snack (indicate name/kcal Glucerna Chocolate TID /protein ) Provides kCal: 660 Provides Protein (gm) 30 Goal #1 Meet atleast 75% of energy needs via PO and ONS intake Anticipated Discharge Needs: Consistent CHO Diet and Glucerna daily-BID Follow-Up By: 05/08/19 Additional Comments FU PO and ONS intake
[2019-05-07] MEDS: NACL 0.9% 1000 ML 1,000 ML IV SCH (07:20)
[2019-05-07] MEDS: HumaLOG SUB-Q SCH ×4 (09:00→22:04)
[2019-05-07] MEDS: KENALOG TP SCH (11:23)
[2019-05-07] MEDS: PROTONIX PO SCH (11:23)
[2019-05-07] MEDS: SODIUM CHLORIDE FLUSH SYRINGE 10 ML IV SCH ×2 (11:23→22:04)
--- NOTE | 2019-05-07 12:20 | Progress Note ---
Assessment and Plan Assessment and plan: Patient is a 79 yo woman from [facility] with a history of COPD, GERD, DM 2, Dementia, chronic Debility and contractures with functional quadriplegia who presents to [facility] ED on 05/05/19 with AMS, decreased oral intake. She was just discharged from here on 04/30/19 with same complaints and admitted with ARF with a Creatinine of 2.1. She was discharged with a Creatinine of 1.3 on 04/30/19. Now Cr is back up to 1.9. -Acute metabolic encephalopathy: treat the Renal failure -CHETAN (acute kidney injury), ATN +vasomotor nephropathy due to dehydration: treat with IVF, monitor bmp closely -IDDM (insulin dependent diabetes mellitus): Low dose SSI coverage -GERD (gastroesophageal reflux disease): ppi -Asthma: Bronchodilators prn -DVT prophylaxis: On Lovenox and GI prophylaxis Bmp pending Disposition: continue inpatient care, once renal function returns to baseline History Interval history: Patient was seen and examined. Follow-up on current diagnosis of AMS. No overnight events reported to me. Imaging, nursing note, chart, labs and old chart reviewed. Patient is non-communicative Hospitalist Physical - Physical exam Narrative exam: Gen: cachetic, chronic disable appearing, NAD, a/o x 2, missed year HEENT: NCAT, EOMI, PERRL, OP Clear Neck: supple, no adenopathy, no thyromegaly, no JVD CVS/Heart: RRR, normal S1S2, pulses present bilaterally Chest/Lungs: CTA B, Symmetrical chest expansion, good air entry bilaterally GI/Abdomen: soft, NTND, good bowel sounds, no guarding or rebound /Bladder: no suprapubic tenderness, no CVA or paraspinal tenderness Extermity/Skin: no c/c/e, no obvious rash MSK: contractures Neuro: CN 2-12 grossly intact, no new focal deficits Psych: calm - Constitutional Vitals: Temp Pulse Resp BP Pulse Ox 98.1 F 58 L 18 145/58 100 05/07/19 07:30 05/07/19 07:30 05/07/19 07:30 05/07/19 07:30 05/07/19 07:30 General appearance: Present: no acute distress, cachectic. Absent: well- nourished Results - Labs CBC & Chem 7: 05/06/19 09:00 05/06/19 07:42 Labs: Laboratory Last Values WBC 6.6 K/mm3 (4.5-11.0) 05/06/19 09:00 RBC 2.55 M/mm3 (3.65-5.03) L 05/06/19 09:00 Hgb 8.9 gm/dl (10.1-14.3) L 05/06/19 09:00 Hct 25.6 % (30.3-42.9) L D 05/06/19 09:00 MCV 101 fl (79-97) H 05/06/19 09:00 MCH 35 pg (28-32) H 05/06/19 09:00 MCHC 35 % (30-34) H 05/06/19 09:00 RDW 14.0 % (13.2-15.2) 05/06/19 09:00 Plt Count 207 K/mm3 (140-440) 05/06/19 09:00 Lymph % (Auto) TNR 05/06/19 07:42 [place] % (Auto) TNR 05/06/19 07:42 Eos % (Auto) TNR 05/06/19 07:42 Baso % (Auto) TNR 05/06/19 07:42 Lymph # TNR 05/06/19 07:42 [place] # TNR 05/06/19 07:42 Eos # TNR 05/06/19 07:42 Baso # TNR 05/06/19 07:42 Add Manual Diff TNR 05/06/19 07:42 Total Counted 100 05/05/19 13:20 Seg Neutrophils % TNR 05/06/19 07:42 Seg Neuts % (Manual) 90.0 % (40.0-70.0) H 05/05/19 13:20 1.0 % 05/05/19 13:20 6.0 % (13.4-35.0) L 05/05/19 13:20 Reactive Lymphs % (Man) 0 % 05/05/19 13:20 3.0 % (0.0-7.3) 05/05/19 13:20 0 % (0.0-4.3) 05/05/19 13:20 0 % (0.0-1.8) 05/05/19 13:20 0 % 05/05/19 13:20 0 % 05/05/19 13:20 0 % 05/05/19 13:20 0 % 05/05/19 13:20 Nucleated RBC % Not Reportable 05/05/19 13:20 Seg Neutrophils # TNR 05/06/19 07:42 Seg Neutrophils # Man 9.5 K/mm3 (1.8-7.7) H 05/05/19 13:20 Band Neutrophils # 0.1 K/mm3 05/05/19 13:20 0.6 K/mm3 (1.2-5.4) L 05/05/19 13:20 Abs React Lymphs (Man) 0.0 K/mm3 05/05/19 13:20 0.3 K/mm3 (0.0-0.8) 05/05/19 13:20 0.0 K/mm3 (0.0-0.4) 05/05/19 13:20 0.0 K/mm3 (0.0-0.1) 05/05/19 13:20 0.0 K/mm3 05/05/19 13:20 0.0 K/mm3 05/05/19 13:20 0.0 K/mm3 05/05/19 13:20 Blast Cells # 0.0 K/mm3 05/05/19 13:20 WBC Morphology Not Reportable 05/05/19 13:20 Hypersegmented Neuts Not Reportable 05/05/19 13:20 Hyposegmented Neuts Not Reportable 05/05/19 13:20 Hypogranular Neuts Not Reportable 05/05/19 13:20 Not Reportable 05/05/19 13:20 Not Reportable 05/05/19 13:20 Not Reportable 05/05/19 13:20 Not Reportable 05/05/19 13:20 Not Reportable 05/05/19 13:20 Not Reportable 05/05/19 13:20 Consistent w auto 05/05/19 13:20 Not Reportable 05/05/19 13:20 Plt Clumps, EDTA Not Reportable 05/05/19 13:20 Few 05/05/19 13:20 Not Reportable 05/05/19 13:20 Not Reportable 05/05/19 13:20 Plt Morphology Comment Not Reportable 05/05/19 13:20 RBC Morphology Not Reportable 05/05/19 13:20 Dimorphic RBCs Not Reportable 05/05/19 13:20 Not Reportable 05/05/19 13:20 Not Reportable 05/05/19 13:20 Not Reportable 05/05/19 13:20 1+ 05/05/19 13:20 Not Reportable 05/05/19 13:20 1+ 05/05/19 13:20 Not Reportable 05/05/19 13:20 Not Reportable 05/05/19 13:20 Not Reportable 05/05/19 13:20 Not Reportable 05/05/19 13:20 Not Reportable 05/05/19 13:20 Not Reportable 05/05/19 13:20 Not Reportable 05/05/19 13:20 Not Reportable 05/05/19 13:20 Not Reportable 05/05/19 13:20 3+ 05/05/19 13:20 Not Reportable 05/05/19 13:20 Not Reportable 05/05/19 13:20 Not Reportable 05/05/19 13:20 Acanthocytes (Spur) Not Reportable 05/05/19 13:20 Rouleaux Not Reportable 05/05/19 13:20 Not Reportable 05/05/19 13:20 Not Reportable 05/05/19 13:20 Not Reportable 05/05/19 13:20 Not Reportable 05/05/19 13:20 Hem Pathologist Commnt No 05/05/19 13:20 Sodium 139 mmol/L (137-145) 05/06/19 07:42 Potassium 4.3 mmol/L (3.6-5.0) 05/06/19 07:42 Chloride 99.5 mmol/L (98-107) 05/06/19 07:42 Carbon Dioxide 26 mmol/L (22-30) 05/06/19 07:42 18 mmol/L 05/06/19 07:42 BUN 30 mg/dL (7-17) H 05/06/19 07:42 1.9 mg/dL (0.7-1.2) H 05/06/19 07:42 Estimated GFR 26 ml/min 05/06/19 07:42 16 % 05/06/19 07:42 Glucose 84 mg/dL (65-100) 05/06/19 07:42 POC Glucose 272 (70-105) H 05/07/19 11:34 6.1 % (4-6) H 05/06/19 08:09 Calcium 8.8 mg/dL (8.4-10.2) 05/06/19 07:42 0.50 mg/dL (0.1-1.2) 05/06/19 07:42 AST 21 units/L (5-40) 05/06/19 07:42 ALT 13 units/L (7-56) 05/06/19 07:42 49 units/L (35-129) 05/06/19 07:42 5.7 g/dL (6.3-8.2) L 05/06/19 07:42 3.2 g/dL (3.9-5) L 05/06/19 07:42 1.3 % 05/06/19 07:42 15 units/L (13-60) 05/05/19 13:20 Yellow (Yellow) 05/05/19 17:05 Clear (Clear) 05/05/19 17:05 6.0 (5.0-7.0) 05/05/19 17:05 Ur Specific [place] 1.009 (1.003-1.030) 05/05/19 17:05 <15 mg/dl mg/dL (Negative) 05/05/19 17:05 Neg mg/dL (Negative) 05/05/19 17:05 Neg mg/dL (Negative) 05/05/19 17:05 Neg (Negative) 05/05/19 17:05 Neg (Negative) 05/05/19 17:05 Neg (Negative) 05/05/19 17:05 < 2.0 mg/dL (<2.0) 05/05/19 17:05 Ur Leukocyte Esterase Neg (Negative) 05/05/19 17:05 1.0 /HPF (0.0-6.0) 05/05/19 17:05 2.0 /HPF (0.0-6.0) 05/05/19 17:05 U Epithel Cells (Auto) < 1.0 /HPF (0-13.0) 05/05/19 17:05 Hyaline Casts 2 /LPF 05/05/19 17:05 Few /HPF 05/05/19 17:05 Active Medications - Current Medications Current Medications: Generic Name Dose Route Start Last Admin Trade Name Freq PRN Reason Stop Dose Admin Acetaminophen 650 mg 05/06/19 07:34 Tylenol PO Q4H PRN Pain MILD(1-3)/Fever >100.5/CALLAHAN Albuterol 2.5 mg 05/05/19 21:00 Proventil IH BIDRT PRN Shortness Of Breath Hydromorphone HCl 0.25 mg 05/06/19 07:34 Dilaudid IV Q3H PRN Pain, Moderate (4-6) Sodium Chloride 1,000 mls @ 100 mls/hr 05/06/19 08:00 05/07/19 07:20 Nacl 0.9% 1000 Ml IV 100 mls/hr DIRECT RUFINA Administration Insulin Human Lispro 0 unit 05/05/19 22:00 05/07/19 09:00 Humalog SUB-Q Not Given ACHS RUFINA Protocol Ondansetron HCl 4 mg 05/06/19 07:34 Zofran IV Q8H PRN Nausea And Vomiting Pantoprazole Sodium 40 mg 05/05/19 21:00 05/07/19 11:23 Protonix PO 40 mg QDAY RUFINA Administration Sodium Chloride 10 ml 05/06/19 10:00 05/07/19 11:23 Sodium Chloride Flush Syringe 10 Ml IV 10 ml BID RUFINA Administration Sodium Chloride 10 ml 05/06/19 07:34 Sodium Chloride Flush Syringe 10 Ml IV PRN PRN LINE FLUSH Tramadol HCl 50 mg 05/05/19 20:16 Ultram PO BID PRN Pain, Moderate (4-6) Triamcinolone Acetonide 1 applic 05/06/19 09:00 05/07/19 11:23 Kenalog TP 1 applic DAILY@0900 RUFINA Administration Nutrition/Malnutrition Assess - Dietary Evaluation Nutrition/Malnutrition Findings: Nutrition Notes Start: 05/06/19 09:31 Freq: Status: Active Protocol: Document 05/06/19 09:31 STANLEY (Rec: 05/06/19 10:49 DW [id number]) Co-Sign 05/06/19 09:31 LP Nutrition Notes Need for Assessment generated from: MD Order Initial or Follow up Assessment Current Diagnosis CKD(stage I-IV),Diabetes, Hypertension Other Pertinent Diagnosis Dementia Current Diet Consistent CHO Labs/Tests Glu: 64 Pertinent Medications Reviewed Height 5 ft 2 in Weight 58.876 kg [place] Body Weight (kg) 50.00 BMI 23.7 Weight Status Appropriate Subjective/Other Information Pt stated her appetite was not good this morning and ate 0% of her breaksfast. Pt did consume 100% of her ONS and stated that she likes to drink her meals instead of consuming whole foods and loves her ONS. Burn Absent Trauma Absent GI Symptoms None Food Allergy No Minimum of two criteria No #1 Nutrition Diagnosis Inadequate oral intake Etiology poor appetite, dementia and advanced age As Evidenced by Signs and Symptoms 0% of PO intake at breakfast and pt stated she prefers to drink ONS instead of whole foods Is patient on ventilator? No Is Patient Ambulatory and/or Out of Bed No REE-([facility]-confined to bed) 8799.044 Calculation Used for Recommendations [facility] Additional Notes PRO needs: 59-71g (1.0-1.2g/kg ) Fluids: 1 mL/kcal Nutrition Intervention Change Diet Order: Continue current diet Add Supplement/Snack (indicate name/kcal Glucerna Chocolate TID /protein ) Provides kCal: 660 Provides Protein (gm) 30 Goal #1 Meet atleast 75% of energy needs via PO and ONS intake Anticipated Discharge Needs: Consistent CHO Diet and Glucerna daily-BID Follow-Up By: 05/08/19 Additional Comments FU PO and ONS intake
[2019-05-08 04:05] LABS: Hematocrit 23.9 % (30.3-42.9); Hemoglobin 8.2 gm/dl (10.1-14.3); Mean Corpuscular HGB Conc 34 % (30-34); Mean Corpuscular Volume 101 fl (79-97); Platelet Count 175 K/mm3 (140-440); Red Blood Count 2.38 M/mm3 (3.65-5.03); Red Cell Distribution Width 13.8 % (13.2-15.2)
[2019-05-08 04:41] LABS: Calcium 8.3 mg/dL (8.4-10.2)
[2019-05-08] MEDS: HumaLOG SUB-Q SCH ×4 (08:39→21:38)
[2019-05-08] MEDS: SODIUM CHLORIDE FLUSH SYRINGE 10 ML IV SCH ×2 (10:26→21:38)
[2019-05-08] MEDS: PROTONIX PO SCH (10:26)
[2019-05-08] MEDS: KENALOG TP SCH (11:50)
--- NOTE | 2019-05-08 15:53 | Progress Note ---
Assessment and Plan Assessment and plan: Patient is a 79 yo woman from [facility] with a history of COPD, GERD, DM 2, Dementia, chronic Debility and contractures with functional quadriplegia who presents to [facility] ED on 05/05/19 with AMS, decreased oral intake. She was just discharged from here on 04/30/19 with same complaints and admitted with ARF with a Creatinine of 2.1. She was discharged with a Creatinine of 1.3 on 04/30/19. Now Cr is back up to 1.9. -Acute metabolic encephalopathy: treat the Renal failure -CHETAN (acute kidney injury), ATN +vasomotor nephropathy due to dehydration: treat with IVF, monitor bmp closely -IDDM (insulin dependent diabetes mellitus): Low dose SSI coverage -GERD (gastroesophageal reflux disease): ppi -Asthma: Bronchodilators prn -DVT prophylaxis: On Lovenox and GI prophylaxis Bmp pending Disposition: continue inpatient care, once renal function returns to baseline or plateau, Cr today is 1.5, hopefully will discharge tomorrow History Interval history: Patient was seen and examined. Follow-up on current diagnosis of AMS. No overnight events reported to me. Imaging, nursing note, chart, labs and old chart reviewed. Patient is non-communicative Hospitalist Physical - Physical exam Narrative exam: Gen: cachetic, chronic disable appearing, NAD, a/o x 2, missed year HEENT: NCAT, EOMI, PERRL, OP Clear Neck: supple, no adenopathy, no thyromegaly, no JVD CVS/Heart: RRR, normal S1S2, pulses present bilaterally Chest/Lungs: CTA B, Symmetrical chest expansion, good air entry bilaterally GI/Abdomen: soft, NTND, good bowel sounds, no guarding or rebound /Bladder: no suprapubic tenderness, no CVA or paraspinal tenderness Extermity/Skin: no c/c/e, no obvious rash MSK: contractures Neuro: CN 2-12 grossly intact, no new focal deficits Psych: calm - Constitutional Vitals: Temp Pulse Resp BP Pulse Ox 98.5 F 80 18 130/51 100 05/08/19 13:33 05/08/19 13:33 05/08/19 13:33 05/08/19 13:33 05/08/19 13:33 General appearance: Present: no acute distress, cachectic. Absent: well- nourished Results - Labs CBC & Chem 7: 05/08/19 03:09 05/08/19 03:09 Labs: Laboratory Last Values WBC 6.6 K/mm3 (4.5-11.0) 05/08/19 03:09 RBC 2.38 M/mm3 (3.65-5.03) L 05/08/19 03:09 Hgb 8.2 gm/dl (10.1-14.3) L 05/08/19 03:09 Hct 23.9 % (30.3-42.9) L 05/08/19 03:09 MCV 101 fl (79-97) H 05/08/19 03:09 MCH 34 pg (28-32) H 05/08/19 03:09 MCHC 34 % (30-34) 05/08/19 03:09 RDW 13.8 % (13.2-15.2) 05/08/19 03:09 Plt Count 175 K/mm3 (140-440) 05/08/19 03:09 Lymph % (Auto) TNR 05/06/19 07:42 [place]anco % (Auto) TNR 05/06/19 07:42 Eos % (Auto) TNR 05/06/19 07:42 Baso % (Auto) TNR 05/06/19 07:42 Lymph # TNR 05/06/19 07:42 [place]anco # TNR 05/06/19 07:42 Eos # TNR 05/06/19 07:42 Baso # TNR 05/06/19 07:42 Add Manual Diff TNR 05/06/19 07:42 Total Counted 100 05/05/19 13:20 Seg Neutrophils % TNR 05/06/19 07:42 Seg Neuts % (Manual) 90.0 % (40.0-70.0) H 05/05/19 13:20 1.0 % 05/05/19 13:20 6.0 % (13.4-35.0) L 05/05/19 13:20 Reactive Lymphs % (Man) 0 % 05/05/19 13:20 3.0 % (0.0-7.3) 05/05/19 13:20 0 % (0.0-4.3) 05/05/19 13:20 0 % (0.0-1.8) 05/05/19 13:20 0 % 05/05/19 13:20 0 % 05/05/19 13:20 0 % 05/05/19 13:20 0 % 05/05/19 13:20 Nucleated RBC % Not Reportable 05/05/19 13:20 Seg Neutrophils # TNR 05/06/19 07:42 Seg Neutrophils # Man 9.5 K/mm3 (1.8-7.7) H 05/05/19 13:20 Band Neutrophils # 0.1 K/mm3 05/05/19 13:20 0.6 K/mm3 (1.2-5.4) L 05/05/19 13:20 Abs React Lymphs (Man) 0.0 K/mm3 05/05/19 13:20 0.3 K/mm3 (0.0-0.8) 05/05/19 13:20 0.0 K/mm3 (0.0-0.4) 05/05/19 13:20 0.0 K/mm3 (0.0-0.1) 05/05/19 13:20 0.0 K/mm3 05/05/19 13:20 0.0 K/mm3 05/05/19 13:20 0.0 K/mm3 05/05/19 13:20 Blast Cells # 0.0 K/mm3 05/05/19 13:20 WBC Morphology Not Reportable 05/05/19 13:20 Hypersegmented Neuts Not Reportable 05/05/19 13:20 Hyposegmented Neuts Not Reportable 05/05/19 13:20 Hypogranular Neuts Not Reportable 05/05/19 13:20 Not Reportable 05/05/19 13:20 Not Reportable 05/05/19 13:20 Not Reportable 05/05/19 13:20 Not Reportable 05/05/19 13:20 Not Reportable 05/05/19 13:20 Not Reportable 05/05/19 13:20 Consistent w auto 05/05/19 13:20 Not Reportable 05/05/19 13:20 Plt Clumps, EDTA Not Reportable 05/05/19 13:20 Few 05/05/19 13:20 Not Reportable 05/05/19 13:20 Not Reportable 05/05/19 13:20 Plt Morphology Comment Not Reportable 05/05/19 13:20 RBC Morphology Not Reportable 05/05/19 13:20 Dimorphic RBCs Not Reportable 05/05/19 13:20 Not Reportable 05/05/19 13:20 Not Reportable 05/05/19 13:20 Not Reportable 05/05/19 13:20 1+ 05/05/19 13:20 Not Reportable 05/05/19 13:20 1+ 05/05/19 13:20 Not Reportable 05/05/19 13:20 Not Reportable 05/05/19 13:20 Not Reportable 05/05/19 13:20 Not Reportable 05/05/19 13:20 Not Reportable 05/05/19 13:20 Not Reportable 05/05/19 13:20 Not Reportable 05/05/19 13:20 Not Reportable 05/05/19 13:20 Not Reportable 05/05/19 13:20 3+ 05/05/19 13:20 Not Reportable 05/05/19 13:20 Not Reportable 05/05/19 13:20 Not Reportable 05/05/19 13:20 Acanthocytes (Spur) Not Reportable 05/05/19 13:20 Rouleaux Not Reportable 05/05/19 13:20 Not Reportable 05/05/19 13:20 Not Reportable 05/05/19 13:20 Not Reportable 05/05/19 13:20 Not Reportable 05/05/19 13:20 Hem Pathologist Commnt No 05/05/19 13:20 Sodium 139 mmol/L (137-145) 05/08/19 03:09 Potassium 4.3 mmol/L (3.6-5.0) 05/08/19 03:09 Chloride 102.1 mmol/L (98-107) 05/08/19 03:09 Carbon Dioxide 28 mmol/L (22-30) 05/08/19 03:09 13 mmol/L 05/08/19 03:09 BUN 29 mg/dL (7-17) H 05/08/19 03:09 1.5 mg/dL (0.7-1.2) H 05/08/19 03:09 Estimated GFR 33 ml/min 05/08/19 03:09 19 % 05/08/19 03:09 Glucose 128 mg/dL (65-100) H 05/08/19 03:09 POC Glucose 394 (70-105) H 05/08/19 11:55 6.1 % (4-6) H 05/06/19 08:09 Calcium 8.3 mg/dL (8.4-10.2) L 05/08/19 03:09 0.50 mg/dL (0.1-1.2) 05/06/19 07:42 AST 21 units/L (5-40) 05/06/19 07:42 ALT 13 units/L (7-56) 05/06/19 07:42 49 units/L (35-129) 05/06/19 07:42 5.7 g/dL (6.3-8.2) L 05/06/19 07:42 3.2 g/dL (3.9-5) L 05/06/19 07:42 1.3 % 05/06/19 07:42 15 units/L (13-60) 05/05/19 13:20 Yellow (Yellow) 05/05/19 17:05 Clear (Clear) 05/05/19 17:05 6.0 (5.0-7.0) 05/05/19 17:05 Ur Specific [place] 1.009 (1.003-1.030) 05/05/19 17:05 <15 mg/dl mg/dL (Negative) 05/05/19 17:05 Neg mg/dL (Negative) 05/05/19 17:05 Neg mg/dL (Negative) 05/05/19 17:05 Neg (Negative) 05/05/19 17:05 Neg (Negative) 05/05/19 17:05 Neg (Negative) 05/05/19 17:05 < 2.0 mg/dL (<2.0) 05/05/19 17:05 Ur Leukocyte Esterase Neg (Negative) 05/05/19 17:05 1.0 /HPF (0.0-6.0) 05/05/19 17:05 2.0 /HPF (0.0-6.0) 05/05/19 17:05 U Epithel Cells (Auto) < 1.0 /HPF (0-13.0) 05/05/19 17:05 Hyaline Casts 2 /LPF 05/05/19 17:05 Few /HPF 05/05/19 17:05 Active Medications - Current Medications Current Medications: Generic Name Dose Route Start Last Admin Trade Name Freq PRN Reason Stop Dose Admin Acetaminophen 650 mg 05/06/19 07:34 Tylenol PO Q4H PRN Pain MILD(1-3)/Fever >100.5/CALLAHAN Albuterol 2.5 mg 05/05/19 21:00 Proventil IH BIDRT PRN Shortness Of Breath Hydromorphone HCl 0.25 mg 05/06/19 07:34 Dilaudid IV Q3H PRN Pain, Moderate (4-6) Sodium Chloride 1,000 mls @ 100 mls/hr 05/06/19 08:00 05/07/19 07:20 Nacl 0.9% 1000 Ml IV 100 mls/hr DIRECT RUFINA Administration Insulin Human Lispro 0 unit 05/05/19 22:00 05/08/19 12:48 Humalog SUB-Q 5 unit ACHS RUFINA Administration Protocol Ondansetron HCl 4 mg 05/06/19 07:34 Zofran IV Q8H PRN Nausea And Vomiting Pantoprazole Sodium 40 mg 05/05/19 21:00 05/08/19 10:26 Protonix PO 40 mg QDAY RUFINA Administration Sodium Chloride 10 ml 05/06/19 10:00 05/08/19 10:26 Sodium Chloride Flush Syringe 10 Ml IV 10 ml BID RUFINA Administration Sodium Chloride 10 ml 05/06/19 07:34 Sodium Chloride Flush Syringe 10 Ml IV PRN PRN LINE FLUSH Tramadol HCl 50 mg 05/05/19 20:16 Ultram PO BID PRN Pain, Moderate (4-6) Triamcinolone Acetonide 1 applic 05/06/19 09:00 05/08/19 11:50 Kenalog TP 1 applic DAILY@0900 RUFINA Administration Nutrition/Malnutrition Assess - Dietary Evaluation Nutrition/Malnutrition Findings: Nutrition Notes Start: 05/06/19 09:31 Freq: Status: Active Protocol: Document 05/08/19 11:05 STANLEY (Rec: 05/08/19 12:05 DW [id number]) Co-Sign 05/08/19 11:05 LP Nutrition Notes Initial or Follow up Reassessment Current Diagnosis CKD(stage I-IV),Diabetes, Hypertension Other Pertinent Diagnosis Dementia Current Diet Consistent CHO Labs/Tests Reviwed Pertinent Medications Reviewed Height 5 ft 2 in Weight 58.876 kg [place] Body Weight (kg) 50.00 BMI 23.7 Subjective/Other Information Pt stated she ate <25% of her breakfast but drank 100% of ONS. Pt continues to prefer to consume fluids instead of whole foods. Percent of energy/protein needs met: 96%/89% Burn Absent #1 Nutrition Diagnosis Inadequate oral intake Diagnosis Progress(for reassessment Continues documentation) Is patient on ventilator? No Is Patient Ambulatory and/or Out of Bed No REE-([facility]-confined to bed) 0437.075 Calculation Used for Recommendations [facility] Additional Notes PRO needs: 59-71g (1.0-1.2g/kg ) Fluids: 1 mL/kcal Nutrition Intervention Change Diet Order: Continue current diet Add Supplement/Snack (indicate name/kcal Glucerna Chocolate TID /protein ) Provides kCal: 660 Provides Protein (gm) 30 Goal #1 Continue to meet atleast 75% of needs via PO and ONS intake Anticipated Discharge Needs: Consistent CHO Diet and Glucerna TID Follow-Up By: 05/13/19 Additional Comments FU PO and ONS intake
[2019-05-09] MEDS: NACL 0.9% 1000 ML 1,000 ML IV SCH (07:24)
[2019-05-09] MEDS: HumaLOG SUB-Q SCH ×2 (08:30→13:32)
[2019-05-09 08:56] LABS: Calcium 8.8 mg/dL (8.4-10.2)
[2019-05-09] MEDS: KENALOG TP SCH (09:20)
[2019-05-09] MEDS: PROTONIX PO SCH (09:20)
[2019-05-09] MEDS: SODIUM CHLORIDE FLUSH SYRINGE 10 ML IV SCH (09:20)
--- NOTE | 2019-05-09 10:52 | Discharge Summary ---
Providers - Providers Date of Admission: 05/05/19 19:51 Date of discharge: 05/09/19 Attending physician: FRANSISCO VILLANUEVA 05/05/19 21:55 Consult to Dietitian/Nutrition [CONS] Routine Physician Instructions: Reason For Exam: Reason for Consult: Poor oral intake 05/06/19 Consult to Case Management [CONS] Routine Services Needed at Discharge: Refrigeration Mechanic Notified:: Ifeoma If yes, spoke with:: Ifeoma Time called:: 11:25 05/06/19 08:47 Physical Therapy Evaluation and Treat [CONS] Routine Comment: Reason For Exam: Weakness Primary care physician: [employer] WIRELESS MANAGER Hospitalization Condition: Stable Hospital course: Patient is a 79 yo woman from [facility] facility with a history of COPD, GERD, DM 2, Dementia, chronic Debility and contractures with functional quadriplegia who presents to [facility] ED on 05/05/19 with AMS, decreased oral intake. She was just discharged from here on 04/30/19 with same complaints and admitted with ARF with a Creatinine of 2.1. She was discharged with a Creatinine of 1.3 on 04/30/19. Now Cr is back up to 1.9. Discharge Diagnoses: -Acute metabolic encephalopathy: treat the Renal failure -CHETAN (acute kidney injury), ATN +vasomotor nephropathy due to dehydration: treat with IVF, monitor bmp closely -IDDM (insulin dependent diabetes mellitus): Low dose SSI coverage -GERD (gastroesophageal reflux disease): ppi -Asthma: Bronchodilators prn -DVT prophylaxis: On Lovenox and GI prophylaxis Disposition: Cr today is 1.2, will discharge back to [facility] Dis[id number] Time spent for discharge: 33 minutes Core Measure Documentation - Palliative Care Palliative Care/ Comfort Measures: Not Applicable - Core Measures Any of the following diagnoses?: none - VTE Discharge Requirements Deep Vein Thrombosis/Pulmonary Embolism Present on Admission: No Has pt received <5 days of overlap therapy or INR<2.0: No Anticoagulant overlap therapy prescribed at discharge: No Contraindication No Overlap Therapy order at DC: Not Indicated Exam - Physical Exam Narrative exam: Gen: cachetic, chronic disable appearing, NAD, a/o x 2, missed year HEENT: NCAT, EOMI, PERRL, OP Clear Neck: supple, no adenopathy, no thyromegaly, no JVD CVS/Heart: RRR, normal S1S2, pulses present bilaterally Chest/Lungs: CTA B, Symmetrical chest expansion, good air entry bilaterally GI/Abdomen: soft, NTND, good bowel sounds, no guarding or rebound /Bladder: no suprapubic tenderness, no CVA or paraspinal tenderness Extermity/Skin: no c/c/e, no obvious rash MSK: contractures Neuro: CN 2-12 grossly intact, no new focal deficits Psych: calm - Constitutional Vitals: Temp Pulse Resp BP Pulse Ox 97.8 F 72 16 116/55 99 05/09/19 07:21 05/09/19 07:21 05/09/19 09:57 05/09/19 07:21 05/09/19 07:21 Plan Activity: fall precautions, other (no strenous activity unless cleared by PCP) Diet: diabetic Special Instructions: record blood sugar diary (bid with meals) Follow up with: PRIMARY CARE, [Primary Care Provider] - 3-5 Days
[2019-05-09 13:54] VITALS: BP 143/51
== END 2019-05-09 16:47 | disposition hospice, home (50) | DRG 682 ==
LOC: ED 12:33 → 2B-ACE 19:51
PROVIDERS: ADMIT Internal Medicine; ATTEND Internal Medicine
DX: N17.0 Acute kidney failure with tubular necrosis (principal); G93.41 Metabolic encephalopathy; E11.649 Type 2 diabetes mellitus with hypoglycemia without coma; E11.22 Type 2 diabetes mellitus with diabetic chronic kidney disease; I12.9 Hypertensive chronic kidney disease with stage 1 through stage 4 chronic kidney disease, or unspecified chronic kidney disease; N18.3 Chronic kidney disease, stage 3 (moderate); F32.9 Major depressive disorder, single episode, unspecified; E86.0 Dehydration; F03.90 Unspecified dementia, unspecified severity, without behavioral disturbance, psychotic disturbance, mood disturbance, and anxiety; Z79.51 Long term (current) use of inhaled steroids; Z79.4 Long term (current) use of insulin; I25.2 Old myocardial infarction; Z82.49 Family history of ischemic heart disease and other diseases of the circulatory system
CPT/HCPCS: 36415; 80048; 80053; 81001; 82962; 83036; 83690; 85007; 85025; 85027; 87116; 96361; 96374; 96375; G0378; J1815; J2405; J7030

== ENCOUNTER 2019-07-18 19:41 | Emergency (ER) | payer MEDICARE ==
[2019-07-18] MEDS ORDERED: ACETAMINOPHEN 325 MG/10.15 ML ORAL LIQD UNIT DOSE PO ONE (19:53)
--- NOTE | 2019-07-18 19:55 | Emergency Department Report ---
ED General Adult HPI - General Chief complaint: Fall Stated complaint: GROUN FALL Time Seen by Provider: 07/18/19 19:44 Source: patient, EMS (verbal report received from emergency medical services. EMS documentation not available at time of chart dictation ), RN notes reviewed, old records reviewed Mode of arrival: Stretcher Limitations: Physical Limitation, Other (patient is demented. Patient is a poor historian.) - History of Present Illness Initial comments: Primary care Dr.: Dr. Burks This is a 79-year-old female, history of dementia, poor coordination, renal insufficiency, currently DO NOT RESUSCITATE, DO NOT INTUBATE, typically requires assistance with certain activities of daily living. The patient is brought to the hospital by emergency medical services for witnessed mechanical fall. As per verbal report from EMS, patient at an outpatient personal-skilled nursing, and was reaching for self, and slipped. She landed on her back, and neck/head. This was reportedly witnessed by one of the residents in the patient's personal skilled nursing. The patient apparently cannot get up on her own. Patient is a poor historian. She complains of back pain. She is not sure she is having headache or neck pain. She indicates the back pain increases with palpation and range of motion. She indicates it does not move anywhere. Patient can't recall she hit her head or neck. She makes no complaint of chest pain or anterior abdominal pain. She makes no complaint of urinary symptoms. -: Sudden Location: back, left, lower extremity Radiation: other Quality: other Consistency: other Improves with: other Worsens with: other - Related Data Home Medications Medication Instructions Recorded Confirmed Last Taken Nitroglycerin [Nitrostat] 0.4 mg SL Q5M PRN MDD 1.2 MG 04/25/19 05/05/19 Unknown Ondansetron [Zofran TAB] 4 mg PO Q6HR PRN 04/25/19 05/05/19 Unknown Triamcinolone 0.1% [Kenalog 0.1% 1 applic TP DAILY@0900 04/25/19 05/05/19 Unknown CREAM] Previous Rx's Medication Instructions Recorded Last Taken Type ALBUTEROL Inhaler (OR & NICU) 2 puff IH BID PRN #1 inha 04/30/19 Unknown Rx [ProAir HFA Inhaler] Insulin NPH/Regular [NovoLIN 70/30] 25 unit SUB-Q BID #5 pen 04/30/19 Unknown Rx Pantoprazole [Protonix TAB] 40 mg PO QDAY #30 tablet 04/30/19 Unknown Rx Acetaminophen [Non-Aspirin Extra 500 mg PO Q6HR PRN #30 tablet 07/18/19 Unknown Rx Strength] Nitrofurantoin [place]/M-Cryst 100 mg PO Q12HR #13 capsule 07/18/19 Unknown Rx [Macrobid CAP] Allergies Allergy/AdvReac Type Severity Reaction Status Date / Time No Known Allergies Allergy Verified 04/25/19 09:21 ED Review of Systems ROS: Stated complaint: GROUN FALL Other details as noted in HPI Comment: Unobtainable due to pts medical conditions (POOR HISTORIAn demented) ED Past Medical Hx - Past Medical History Hx Hypertension: Yes Hx Heart Attack/AMI: Yes Hx Diabetes: Yes (Type II) Hx Renal Disease: Yes (Stage 3) Hx Sickle Cell Disease: No Hx Psychiatric Treatment: Yes (MDD, Dementia) Hx Dementia: Yes Additional medical history: Angina, - Surgical History Hx Open Heart Surgery: Yes (2011) - Social History Smoking Status: Never Smoker Substance Use Type: None - Medications Home Medications: Home Medications Medication Instructions Recorded Confirmed Last Taken Type Nitroglycerin [Nitrostat] 0.4 mg SL Q5M PRN MDD 1.2 MG 04/25/19 05/05/19 Unknown History Ondansetron [Zofran TAB] 4 mg PO Q6HR PRN 04/25/19 05/05/19 Unknown History Triamcinolone 0.1% [Kenalog 0.1% 1 applic TP DAILY@0900 04/25/19 05/05/19 Unknown History CREAM] ALBUTEROL Inhaler (OR & NICU) 2 puff IH BID PRN #1 inha 04/30/19 05/05/19 Unknown Rx [ProAir HFA Inhaler] Insulin NPH/Regular [NovoLIN 70/30] 25 unit SUB-Q BID #5 pen 04/30/19 05/05/19 Unknown Rx Pantoprazole [Protonix TAB] 40 mg PO QDAY #30 tablet 04/30/19 05/05/19 Unknown Rx Acetaminophen [Non-Aspirin Extra 500 mg PO Q6HR PRN #30 tablet 07/18/19 Unknown Rx Strength] Nitrofurantoin [place]/M-Cryst 100 mg PO Q12HR #13 capsule 07/18/19 Unknown Rx [Macrobid CAP] ED Physical Exam - General Limitations: Physical Limitation, Other (chaperoned by RN Alexandre Sharma) General appearance: alert, anxious, obese - Head Head exam: Present: atraumatic, normocephalic - Eye Eye exam: Present: normal appearance, EOMI - ENT ENT exam: Present: normal exam, normal orophraynx, mucous membranes moist, normal external ear exam - Neck Neck exam: Present: normal inspection, full ROM. Absent: tenderness, meningismus - Respiratory Respiratory exam: Present: normal lung sounds bilaterally. Absent: respiratory distress - Cardiovascular Cardiovascular Exam: Present: regular rate, normal rhythm, normal heart sounds. Absent: bradycardia, tachycardia, irregular rhythm, systolic murmur, diastolic murmur, rubs, gallop - GI/Abdominal GI/Abdominal exam: Present: soft. Absent: distended, tenderness, guarding, rebound, rigid, pulsatile mass - Extremities Exam Extremities exam: Present: normal inspection, tenderness, other (there is reproducible left sided hip tenderness. 2+ pulses noted bilateral upper, lower extremities. There is no additional long bony tenderness, although the left side of the pelvis is tender. The pelvis itself is stable. The muscular compartments are soft.) - Back Exam Back exam: Present: normal inspection, paraspinal tenderness, vertebral tenderness, other (there is diffuse to distal lumbar and paralumbar tenderness.) - Neurological Exam Neurological exam: Present: alert, other (there is no facial droop. The tongue is midline. The extraocular movements are intact bilaterally. There is 5/5 strength bilateral upper, lower extremities, sensation is intact to light touch in 4 extremities.) - Psychiatric Psychiatric exam: Present: anxious - Skin Skin exam: Present: warm, dry, intact, normal color. Absent: rash ED Course Vital Signs 07/18/19 07/18/19 07/18/19 19:56 20:00 20:30 Temperature 98.2 F Pulse Rate 77 73 72 Respiratory 17 17 13 Rate Blood Pressure 143/48 120/47 120/47 O2 Sat by Pulse 100 100 99 Oximetry 07/18/19 07/18/19 07/18/19 21:00 21:30 22:36 Temperature Pulse Rate 74 70 82 Respiratory 11 L 10 L 14 Rate Blood Pressure 130/42 139/54 127/55 O2 Sat by Pulse 100 100 100 Oximetry 07/18/19 23:00 Temperature Pulse Rate 71 Respiratory 13 Rate Blood Pressure 135/50 O2 Sat by Pulse 100 Oximetry - Reevaluation(s) Reevaluation #1: 07/18/19 20:33 Differential diagnosis, including not limited to: Intracranial injury, cervical spine injury, thoracic spine injury, pneumonia, urinary tract infection, pelvic fracture, femur fracture Assessment and plan: Elderly 79-year-old female, with reported mechanical fall, with evidence of what appears to be a left hip pain, left proximal leg pain, and lower back pain. She is otherwise afebrile with reassuring vital signs and protecting her airway. She is moving 4 extremities. Pain medicine ordered, laboratory studies, urinalysis, EKG ordered. CT scan, brain, cervical spine, lumbar spine, pelvis pending. We will reassess after her data points have resulted. 07/18/19 22:01 laboratory studies show renal insufficiency, which patient has demonstrated in the past. Urinalysis equivocal with 1+ bacteria, IV fluids ordered, Macrobid ordered. Reevaluation #2: 07/18/19 23:31 Patient is feeling much improved. Her pain has improved. She is moving 4 extremities without significant difficulty. CT scan brain, cervical spine, lumbar spine, pelvis negative for acute disease. Renal insufficiency is reviewed and appreciated, she's had this in the past. Urinalysis reviewed and appreciated, Macrobid is ordered. Patient gives a thumbs-up, and states that she feels improved. ED Medical Decision Making - Lab Data Result diagrams: 07/18/19 20:16 07/18/19 20:16 Vital Signs 07/18/19 19:56 Temperature 98.2 F Pulse Rate 77 Respiratory 17 Rate Blood Pressure 143/48 O2 Sat by Pulse 100 Oximetry Lab Results 07/18/19 Range/Units 20:16 WBC 6.7 (4.5-11.0) K/mm3 RBC 2.49 L (3.65-5.03) M/mm3 Hgb 8.4 L (10.1-14.3) gm/dl Hct 25.2 L (30.3-42.9) % MCV 101 H (79-97) fl MCH 34 H (28-32) pg MCHC 33 (30-34) % RDW 14.0 (13.2-15.2) % Plt Count 155 (140-440) K/mm3 - EKG Data -: EKG Interpreted by Me EKG shows normal: sinus rhythm Rate: normal - EKG Data 07/18/19 22:01 EKG shows a sinus rhythm, 75 bpm, normal axis, QTC is 441 ms, there is prolonged [place] interval, there is low voltage, there is poor R-wave progression, the EKG is abnormal, it is not consistent with a STEMI - Radiology Data Radiology results: pending, report reviewed, image reviewed interpreted by me: X-ray of the pelvis shows DJD, calcified arteries, l X-ray the chest is negative for acute disease, sternotomy wires noted, otherwise, no acute pathology noted. Print Report Referring Physician: LAUREN WHITTAKER Patient Name: LAUREN JOHNSON Date of : 1940 Sex: Female Report Date: 2019-07-18 Report Status: [place] [address] XRay Report Signed Patient: LAUREN JOHNSON MR#: [id number] : 1940 Acct:[id number] Age/Sex: 79 / F ADM Date: 07/18/19 Loc: ED Attending Dr: Ordering Physician: LAUREN WHITTAKER MD Date of Service: 07/18/19 Procedure(s): XR pelvis 1-2V Accession Number(s): [id number] cc: LAUREN WHITTAKER MD Fluoro Time In Minutes: PELVIS ONE VIEW INDICATION / CLINICAL INFORMATION: Pelvic pain after fall. COMPARISON: CT abdomen and pelvis without contrast from 04/25/2019. FINDINGS: BONES and JOINT(S): No acute fracture or subluxation. There is mild lower lumbar spondylosis. No additional significant arthritis is seen. SOFT TISSUES: No acute abnormality. Diffuse atherosclerosis is again noted. ADDITIONAL FINDINGS: None. IMPRESSION: No acute abnormality of the pelvis. Signer Name: Richmond Van MD Signed: 07/18/2019 8:24 PM Workstation Name: [id number] Transcribed By: DA Dictated By: Richmond Van MD Electronically Authenticated By: Richmond Van MD Signed Date/Time: 07/18/192023 Print Report Referring Physician: LAUREN WHITTAKER Patient Name: LAUREN JOHNSON Date of : 1940 Sex: Female Report Date: 2019-07-18 Report Status: Finalized Findings [facility] [address] [place] [address] XRay Report Signed Patient: LAUREN JOHNSON MR#: [id number] : 1940 Acct:[id number] Age/Sex: 79 / F ADM Date: 07/18/19 Loc: ED Attending Dr: Ordering Physician: LAUREN WHITTAKER MD Date of Service: 07/18/19 Procedure(s): XR chest 1V ap Accession Number(s): [id number] cc: LAUREN WHITTAKER MD Fluoro Time In Minutes: CHEST 1 VIEW 07/18/2019 8:02 PM INDICATION / CLINICAL INFORMATION: Back pain after fall. COMPARISON: One view of the chest from 04/25/2019. FINDINGS: The patient is rotated to the left. SUPPORT DEVICES: None. HEART / MEDIASTINUM: Stable. LUNGS / PLEURA: No significant pulmonary or pleural abnormality. No pneumothorax. ADDITIONAL FINDINGS: No significant additional findings. IMPRESSION: 1. No acute abnormality of the chest. Signer Name: Richmond Van MD Signed: 07/18/2019 8:25 PM Workstation Name: [id number] Transcribed By: MN Dictated By: Richmond Van MD Electronically Authenticated By: Richmond Van MD Signed Date/Time: 07/18/192024 Critical care attestation.: If time is entered above; I have spent that time in minutes in the direct care of this critically ill patient, excluding procedure time. ED Disposition Clinical Impression: Fall, CKD (chronic kidney disease), Left leg pain Disposition: DC-01 TO HOME OR SELFCARE Is pt being admited?: No Does the pt Need Aspirin: No Condition: Stable Additional Instructions: Rest, avoid heavy lifting, and avoid strenuous physical activities. Take the pain medication as directed, antibiotics as directed. Follow-up with a primary care doctor within the next 7-10 days. Cultures were sent today, and results will be available in the next 3-5 days. Have your primary care doctor contact the medical records department to obtain culture results. Pain typically gets worse before gets better, therefore, participate in physical activities as tolerated. If patient is using assistive devices to ambulate, recommend continuing using assistive devices. The time being, avoid consumption of Motrin, ibuprofen, Naprosyn, Aleve. Follow-up with the primary care doctor or kidney doctor within the next 3-4 weeks for abnormal kidney function. Return to emergency room right away with new, worsened or different symptoms, or symptoms not present on the initial emergency room evaluation. Referrals: ZAIN VELIZ MD [Primary Care Provider] - 3-5 Days DEB TELLEZ MD [Staff Physician] - 3-5 Days
[2019-07-18] MEDS ORDERED: MORPHINE 4 MG/1 ML INJ IV ONE (20:28)
--- NOTE | 2019-07-18 20:29 | XRay Report ---
CHEST 1 VIEW 07/18/2019 8:02 PM INDICATION / CLINICAL INFORMATION: Back pain after fall. COMPARISON: One view of the chest from 04/25/2019. FINDINGS: The patient is rotated to the left. SUPPORT DEVICES: None. HEART / MEDIASTINUM: Stable. LUNGS / PLEURA: No significant pulmonary or pleural abnormality. No pneumothorax. ADDITIONAL FINDINGS: No significant additional findings. IMPRESSION: 1. No acute abnormality of the chest. Signer Name: Richmond Van MD Signed: 07/18/2019 8:25 PM Workstation Name: [id number]
--- NOTE | 2019-07-18 20:29 | XRay Report ---
PELVIS ONE VIEW INDICATION / CLINICAL INFORMATION: Pelvic pain after fall. COMPARISON: CT abdomen and pelvis without contrast from 04/25/2019. FINDINGS: BONES and JOINT(S): No acute fracture or subluxation. There is mild lower lumbar spondylosis. No colton tional significant arthritis is seen. SOFT TISSUES: No acute abnormality. Diffuse atherosclerosis is again noted. ADDITIONAL FINDINGS: None. IMPRESSION: No acute abnormality of the pelvis. Signer Name: Richmond Van MD Signed: 07/18/2019 8:24 PM Workstation Name: [id number]
[2019-07-18 20:33] LABS: Hematocrit 25.2 % (30.3-42.9); Hemoglobin 8.4 gm/dl (10.1-14.3); Mean Corpuscular HGB Conc 33 % (30-34); Mean Corpuscular Volume 101 fl (79-97); Platelet Count 155 K/mm3 (140-440); Red Blood Count 2.49 M/mm3 (3.65-5.03)
[2019-07-18 20:48] LABS: INR 0.88 (0.87-1.13)
[2019-07-18 20:52] LABS: Calcium 9.2 mg/dL (8.4-10.2)
[2019-07-18 21:21] LABS: Bacteria,Urine 1+ /HPF (Negative); Bilirubin,Urine NEG (Negative); Blood,Urine NEG (Negative); Color,Urine Straw (Yellow); Protein,Urine <15 mg/dL mg/dL (Negative); RBC,Urine < 1.0 /HPF (0.0-6.0); Urobilinogen,Urine < 2.0 mg/dL (<2.0)
[2019-07-18] MEDS ORDERED: NITROFURANTOIN MONOHYD/M-CRYST 100 MG CAP PO ONE (22:00)
[2019-07-18] MEDS ORDERED: SODIUM CHLORIDE 0.9% 500 ML 500 ML IV ONE (22:00)
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
--- NOTE | 2019-07-18 23:15 | Cat Scan Report ---
Examination: CT of the lumbar spine without contrast, 07/18/2019 Clinical information: Back pain after fall Comparison: No relevant prior studies are available for comparison Technical: Multiple axial CT images of the lumbar spine were obtained without intravenous contrast. S agittal and coronal reformats were obtained. All CTs at this facility utilize dose reduction techniq ues including automated exposure control, iterative reconstruction and weight based dosing when appro priate to reduce patient radiation dose to as low as reasonable achievable. Findings: There is normal alignment of the lumbar vertebral bodies. Vertebral body height is well maintained. M oderate multilevel degenerative changes are noted, most prominent at the L2-L3 level. Bony structures appear subjectively demineralized. Limited visualization of intrapelvic contents demonstrates no definitive acute abnormality. Impression: 1. Degenerative and osteopenic changes of the lumbar spine. Signer Name: Margie Beach MD Signed: 07/18/2019 11:10 PM Workstation Name: [id number]
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
[2019-07-18 23:27] VITALS: BP 135/50
== END 2019-07-19 01:35 | disposition home or self-care (01) ==
LOC: ED 19:41
DX: M79.605 Pain in left leg (principal); I13.0 Hypertensive heart and chronic kidney disease with heart failure and stage 1 through stage 4 chronic kidney disease, or unspecified chronic kidney disease; E11.22 Type 2 diabetes mellitus with diabetic chronic kidney disease; N18.3 Chronic kidney disease, stage 3 (moderate); F32.9 Major depressive disorder, single episode, unspecified; I20.9 Angina pectoris, unspecified; Z79.899 Other long term (current) drug therapy; Z79.4 Long term (current) use of insulin; W01.198A Fall on same level from slipping, tripping and stumbling with subsequent striking against other object, initial encounter; Y93.89 Activity, other specified; Y92.89 Other specified places as the place of occurrence of the external cause; Y99.8 Other external cause status
CPT/HCPCS: 36415; 70450; 71045; 72125; 72131; 72170; 72192; 80053; 81001; 82550; 83735; 85027; 85610; 87076; 87086; 87186; 93005; 93010; 96374; 99285; J2270; J7040